=== PATIENT | female | born 1975 | race Caucasian/White ===

== ENCOUNTER 2018-05-02 18:41 | Emergency (ER) | payer SELFPAY ==
[~2018-05-02] VITALS: Ht 170.2 cm; Wt 65.9 kg
[2018-05-02 18:54] VITALS: TEMP 97.5
[2018-05-02 21:45] VITALS: BP 145/97; PULSE 88
== END 2018-05-02 19:53 | disposition home or self-care (01) ==
LOC: COL.ER 18:41
DX: S62.102A Fracture of unspecified carpal bone, left wrist, initial encounter for closed fracture (principal); S00.03XA Contusion of scalp, initial encounter; Y04.8XXA Assault by other bodily force, initial encounter; Y92.009 Unspecified place in unspecified non-institutional (private) residence as the place of occurrence of the external cause
CPT/HCPCS: J2405; J3010; J7030; Q4021

== ENCOUNTER 2018-05-03 07:06 | Day surgery (SDC) | payer SELFPAY ==
[~2018-05-03] VITALS: Ht 170.3 cm; Wt 71.3 kg
[2018-05-03 08:11] VITALS: BP 155/88; PULSE 84; TEMP 97.4
--- NOTE | 2018-05-03 08:19 | NUR ---
Pt alert and oriented. Resting in bed with IVF to RH. 20 G started in R hand. Pt denies needs, has 10/10 pain to L wrist. L arm in splint, fingers swollen, but able to move and CMS intact. Family at bedside. Dr. Day visited, pt signed consent and ready for surgery. Will continue to monitor.
--- NOTE | 2018-05-03 10:25 | NUR ---
Patient had been released.
[2018-05-03 11:50] VITALS: BP 147/98; PULSE 101; TEMP 98.4
--- NOTE | 2018-05-03 11:50 | NUR ---
Pt arrived back to floor, awake and alert, wants to leave now, discussed need for some recovery and to make sure she is okay to discharge. Will continue to monitor. Numbness in LUE from block, per MEDICAL RESIDENT, will be present for up to 12 hours.
[2018-05-03 12:05] VITALS: BP 145/90; PULSE 92
[2018-05-03 12:20] VITALS: BP 110/72; PULSE 102
[2018-05-03 12:35] VITALS: BP 128/72; PULSE 96; TEMP 98.4
[2018-05-03 13:05] VITALS: BP 137/70; PULSE 92; TEMP 98.4
--- NOTE | 2018-05-03 13:35 | NUR ---
Pt discharge complete. INT d/c'd, tip intact. Script given to pt. f/u appointment will be called to phone number on file. Pt doing well, numbness in LUE from block persists, denies pain, VSS. Discharge packet reviewed, answered all questions. Pt escorted out with all belongings, family to drive home, criteria met.
--- NOTE | 2018-05-03 15:27 | NUR ---
Late entry: SW met with patient and family at bedside. Pt gave verbal okay to talk infront of family. Patient reports that she uses [facility] for medications. Pt reports that she needs help with her medical bill but does not have any means of communication. Pt denies having a PCP. Mother, Anjali Dodge is her EMR contact, denies the uses of any DME. No additonal needs identifed.
== END 2018-05-03 13:30 | disposition home or self-care (01) ==
LOC: SDCO 07:06 → SURG 07:07 → SDCO 13:30
DX: S52.572A Other intraarticular fracture of lower end of left radius, initial encounter for closed fracture (principal); S52.612A Displaced fracture of left ulna styloid process, initial encounter for closed fracture; W10.9XXA Fall (on) (from) unspecified stairs and steps, initial encounter; Y92.009 Unspecified place in unspecified non-institutional (private) residence as the place of occurrence of the external cause; F17.210 Nicotine dependence, cigarettes, uncomplicated
CPT/HCPCS: OP; C1713; J0690; J2250; J2704; J2795; J3010

== ENCOUNTER 2018-07-31 05:36 | Day surgery (SDC) | payer OTHER ==
[~2018-07-31] VITALS: Ht 167.6 cm; Wt 72.7 kg
[2018-07-31 06:00] VITALS: BP 129/92; PULSE 87; TEMP 98.5
[2018-07-31 08:54] VITALS: BP 131/84; PULSE 84
--- NOTE | 2018-07-31 08:54 | NUR ---
Patient returns to room 2 per cart from surgery accompanied by Wing BUSTILLO and Yaneth RN. IV fluids infusing and site is free of redness. Siderails up x2 and call light in reach. Awake and alert. Left arm in sling. States that the arm is numb from block placed prior to surgery. Head of cart elevated.
[2018-07-31 09:09] VITALS: BP 131/87; PULSE 80
--- NOTE | 2018-07-31 09:09 | NUR ---
Eating muffin and drinking juice. Denies nausea.
[2018-07-31 09:24] VITALS: BP 127/84; PULSE 85
--- NOTE | 2018-07-31 09:24 | NUR ---
Left arm remains numb due to block. Nirav wrap dressing clean and dry. Tolerated muffin and juice.
--- NOTE | 2018-07-31 09:30 | NUR ---
Dr. Day here to talk with the patient and given instructions to keep the left arm dressing clean and dry and to follow up in the office in two weeks.
--- NOTE | 2018-07-31 09:53 | NUR ---
Patient has met discharge criteria. Discharge instructions discussed, denies any questions, and verbalizes understanding. PIV removed with catheter intact and hemostasis achieved. Patient has clean/dry/intact dressing and sling on operative site. Neurovascular assessment of LUE is WNL. Patient changes to clothing independently. Patient refuses wheelchair, escorted to exit, walks with steady gait. Discharged to home with ride in private vehicle at 0953.
== END 2018-07-31 09:53 | disposition home or self-care (01) ==
LOC: SDCO 05:36
DX: M66.242 Spontaneous rupture of extensor tendons, left hand (principal); F17.210 Nicotine dependence, cigarettes, uncomplicated
CPT/HCPCS: J0690; J2250; J2704; J3010; J7120

== ENCOUNTER 2020-07-13 23:35 | Emergency (ER) | payer OTHER ==
[~2020-07-13] VITALS: Ht 167.6 cm; Wt 81.8 kg
[2020-07-13 23:38] VITALS: TEMP 96.4
[2020-07-13 23:59] LABS: BASO # 0.1 (0.0-0.2); BASO % 1.1 % (0.0-2.0); EOS # 0.2 (0.0-0.7); GRAN # 2.7 (1.4-6.5); GRAN % 33.3 % (42.2-75.2); HEMATOCRIT 40.3 % (37.0-47.0); LYMPH # 4.4 (1.2-3.4); LYMPH % 53.6 % (20.0-51.0); MEAN CELL VOLUME 99 fl (80.0-100.0); MEAN CORPUSCULAR HEMOGLOBIN 32 pg (27.0-31.0); MEAN CORPUSCULAR HGB CONC 32 g/dl (33.0-37.0); MEAN PLATELET VOLUME 8.9 fl (7.4-10.4); MONO # 0.7 (0.1-0.6); MONO % 8.4 % (1.7-9.3); PLATELET COUNT 522 K/mm3 (130-400); RED BLOOD COUNT 4.06 M/mm3 (4.10-5.30); REDCELL DISTRIBUTION WIDTH-CV 19.3 % (11.5-14.5)
[2020-07-14 00:05] LABS: INR 0.9 (0.8-3.0); PROTHROMBIN TIME 9.8 SECONDS (9.7-12.8)
[2020-07-14 00:08] LABS: BILIRUBIN,TOTAL 0.4 mg/dL (0.0-1.0); CALCIUM 8.8 mg/dL (8.4-10.2); CREATININE, serum 0.71 (0.52-1.25); MAGNESIUM 1.9 mg/dL (1.6-2.3); POTASSIUM 4.3 mmol/L (3.4-5.0); TOTAL PROTEIN 7.2 gm/dL (6.4-8.2)
[2020-07-14 01:29] VITALS: BP 120/76; PULSE 78
== END 2020-07-14 01:30 | disposition home or self-care (01) ==
LOC: COL.ER 23:35
PROVIDERS: Physician Assistant
DX: F10.129 Alcohol abuse with intoxication, unspecified (principal); F17.210 Nicotine dependence, cigarettes, uncomplicated; Z96.0 Presence of urogenital implants
CPT/HCPCS: J7030

== ENCOUNTER 2020-07-19 18:21 | Inpatient (IN) | payer OTHER ==
[~2020-07-19] VITALS: Ht 165.1 cm; Wt 71.4 kg
[2020-07-19] VITALS (51 sets, daily range): BP systolic 95; BP diastolic 78; PULSE 105; TEMP 97.9; O2SAT 85–98
[2020-07-19 18:49] LABS: COLLECTION METHOD CLEAN CATCH
[2020-07-19 18:53] LABS: HEMATOCRIT 42.6 % (37.0-47.0); HEMOGLOBIN 14.3 g/dl (12.5-16.0); MEAN CELL VOLUME 95 fl (80.0-100.0); MEAN CORPUSCULAR HEMOGLOBIN 32 pg (27.0-31.0); MEAN CORPUSCULAR HGB CONC 34 g/dl (33.0-37.0); MEAN PLATELET VOLUME 11.3 fl (7.4-10.4); PLATELET COUNT 191 K/mm3 (130-400); RED BLOOD COUNT 4.49 M/mm3 (4.10-5.30)
[2020-07-19 19:01] LABS: MUCOUS Present /lpf; PH 5 (5-8); URINE APPEARANCE Cloudy; URINE BACTERIA Many /hpf; URINE BILIRUBIN Positive (NEGATIVE); URINE BLOOD 3+ (NEGATIVE); URINE COLOR Amber; URINE GLUCOSE Negative (NEGATIVE); URINE KETONE Negative (NEGATIVE); URINE LEUKOCYTE ESTERASE 1+ (NEGATIVE); URINE NITRATE Negative (NEGATIVE); URINE PROTEIN(semi-quant) 2+ (NEGATIVE); URINE RBC >50 /hpf; URINE UROBILINOGEN >=4.0 mg/dL (NEGATIVE)
[2020-07-19 19:06] LABS: BILIRUBIN,TOTAL 1.1 mg/dL (0.0-1.0); CALCIUM 9.9 mg/dL (8.4-10.2); CREATININE, serum 1.13 (0.52-1.25); POTASSIUM 3.9 mmol/L (3.4-5.0); TOTAL PROTEIN 8.1 gm/dL (6.4-8.2)
[2020-07-19 19:36] LABS: BAND 19 % (0-10); LYMPHOCYTE 5 % (20.0-51.0); NEUTROPHILS 75 % (42.0-75.2)
[2020-07-19 19:38] LABS: ANISOCYTOSIS 1+
[2020-07-20] VITALS (710 sets, daily range): BP systolic 96–150; BP diastolic 56–96; PULSE 98–108; TEMP 97.8–99.3; O2SAT 63–98
--- NOTE | 2020-07-20 00:05 | NUR ---
SPOKE TO TIFFANIE CARL REGARDING PATIENT'S ADMISSION MEDICATION ORDERS TO CLARIFY. ORDERS RECEIVED.
--- NOTE | 2020-07-20 02:00 | NUR ---
Vancomycin Initial Dosing Pharmacy Note Ordering provider: Roxane Long E., DO Indication/duration: Sepsis with renal source Relevant comorbidities: Long standing renal disease with stents and nephrostomy tube placement. LABS: WBC = 15.4, SCr= 1.13 Recommendation: Will draw troughs and follow levels. Loading dose: 1.5 grams Maintenance dose: 750 mg every 12 hours Trough goal: 15-20 ug/mL
[2020-07-20 05:56] LABS: MEAN CELL VOLUME 99 fl (80.0-100.0); MEAN CORPUSCULAR HGB CONC 32 g/dl (33.0-37.0); MEAN PLATELET VOLUME 11.6 fl (7.4-10.4); PLATELET COUNT 139 K/mm3 (130-400); RED BLOOD COUNT 3.37 M/mm3 (4.10-5.30); REDCELL DISTRIBUTION WIDTH-CV 19.2 % (11.5-14.5)
[2020-07-20 05:57] LABS: HEMATOCRIT 33.5 % (37.0-47.0); MEAN CORPUSCULAR HEMOGLOBIN 32 pg (27.0-31.0)
[2020-07-20 05:59] LABS: HEMOGLOBIN 10.7 g/dl (12.5-16.0)
[2020-07-20 06:03] LABS: CALCIUM 7.9 mg/dL (8.4-10.2); CREATININE, serum 0.89 (0.52-1.25); POTASSIUM 3.5 mmol/L (3.4-5.0)
[2020-07-20 06:37] LABS: BAND 27 % (0-10); LYMPHOCYTE 9 % (20.0-51.0); NEUTROPHILS 59 % (42.0-75.2); PLATELET ESTIMATE NORMAL (NORMAL)
--- NOTE | 2020-07-20 08:00 | NUR ---
ORDERS RECEIVED TO KEEP PATIENT NPO FOR DRAIN PLACEMENT FOR FLUID IN ABDOMEN.. PATIENT AWARE OF THE PLAN.
--- NOTE | 2020-07-20 12:00 | NUR ---
0.5 MG VERSED AND 25 MCG FENTANYL GIVEN IVSP
--- NOTE | 2020-07-20 12:15 | NUR ---
PT TRANSFERED TO BED AND TAKEN TO ICU BY STAFF. REPORT CALLED TO [facility].
--- NOTE | 2020-07-20 12:30 | NUR ---
PATIENT RETURNS FROM CT AT THIS TIME. THEY WERE UNABLE TO PLACE DRAIN FOR FREE FLUID IN ABDOMEN. DR. BAINS TO CALL DR. FLORIAN WITH UPDATE.
--- NOTE | 2020-07-20 12:58 | NUR ---
1140PT BROUGHT TO CT ON BED. PT WAS TRANSFERED TO CT TABLE AND MONITORING EQUIPMENT PLACED.
--- NOTE | 2020-07-20 13:00 | NUR ---
DR. FLORIAN CALLED FOR DIET ORDERS.
--- NOTE | 2020-07-20 13:51 | NUR ---
Education Associate met with the patient to complete intake. The patient lives independently in [place] with her life partner, José Miguel. The patient denies DME use. The patient does not have a PCP but was agreeable to setting up a new PCP. The patient does not have advanced directives. The patient has adult children but they have not been in contact for 6 years. JOHN discussed the legal next of kin for decision making. The patient understood. She states she would like her mother or her life partner to make decisions and was agreeable obtaining a DPOA-HC form. SW provided a DPOA-HC form to complete. The patient plans to return home at discharge. The patient is self-pay. JOHN contacted Luba Cruz, Financial Counselor and she will assist the the patient in completing a Medicaid application on 07/21. Luba reports the patient has comppleted a Medicaid application in the past (2018) but the patient did not provide the documentation to complete the process. JOHN contacted [facility] to set up appointment. The earliest appointment is on August 25 at 3pm. JOHN set appointment for the patient and faxed clinicals to [facility]. *Discharge plan is to return home with her life partner, José Miguel*
--- NOTE | 2020-07-20 17:51 | NUR ---
PATIENT DOING WELL THIS AFTERNOON. SHE RESTS AND OCCASIONALLY CALLS OUT FOR PAIN MEDICATION. SHE IS ENCOURAGED TO CALL FOR ASSISTANCE WHEN SHE WANTS IT. SHE WAS OFFERED THE RECLINER EARLIER THIS AFTERNOON, BUT REFUSED D/T PAIN WITH POSITION CHANGE. WILL CONTINUE TO MONITOR.
--- NOTE | 2020-07-20 20:37 | NUR ---
PATIENT IS ALERT AND ORIENTED, SMILING,REQUESTS FOR A SLEEP AID TONIGHT CAUSE OF BEING VERY TIRED, ORDERS TO FOLLOW, PAIN IS IN RIGHT UPPER QUADRANT OF ABDOMIN TO RIGHT FLANK AREA.
--- NOTE | 2020-07-20 21:45 | NUR ---
GIVE NURSE REPORT TO AWILDA RN, TOOK PATIENT WITH RANDAL MEADOWS IV NS, TO ROOM MET BY AWILDA ELIZALDE, STRETCHER, HAND OFF EASILY PERFORMED
[2020-07-21 03:11] VITALS: BP 140/80; PULSE 97; TEMP 99.4
--- NOTE | 2020-07-21 04:11 | NUR ---
Patient arrived from the ICU via the bed. She denied pain. Her vitals are stable. She is on room air.
[2020-07-21 06:23] LABS: HEMATOCRIT 33.7 % (37.0-47.0); HEMOGLOBIN 10.5 g/dl (12.5-16.0); MEAN CELL VOLUME 99 fl (80.0-100.0); MEAN CORPUSCULAR HEMOGLOBIN 31 pg (27.0-31.0); MEAN CORPUSCULAR HGB CONC 31 g/dl (33.0-37.0); MEAN PLATELET VOLUME 11.1 fl (7.4-10.4); PLATELET COUNT 136 K/mm3 (130-400); RED BLOOD COUNT 3.39 M/mm3 (4.10-5.30)
[2020-07-21 06:28] LABS: CALCIUM 8.3 mg/dL (8.4-10.2); CREATININE, serum 0.69 (0.52-1.25); POTASSIUM 3.7 mmol/L (3.4-5.0)
[2020-07-21 06:58] LABS: BAND 30 % (0-10); LYMPHOCYTE 9 % (20.0-51.0); METAMYELOCYTE 1 % (0-0); NEUTROPHILS 54 % (42.0-75.2); PLATELET ESTIMATE NORMAL (NORMAL)
--- NOTE | 2020-07-21 07:10 | NUR ---
Lying in bed with eyes closed. Opens eyes when name called out. Alert and oriented x4. Rates pain 10/10 in right abd and flank and would like pain medication. Will administer Dilaudid as prescribed. Carrasco draining dark perez urine. Patient does not want to eat breakfast at this time, says that she is tired from lack of sleep through the night so would like to rest at this time. Denies additional needs.
[2020-07-21 07:14] VITALS: BP 141/81; PULSE 92; TEMP 98.5
--- NOTE | 2020-07-21 09:51 | NUR ---
Patient requests pain medication for increasing pain in right abd and flank. Administer Dilaudid as prescribed. Patient remains resting in bed. Denies additional needs.
--- NOTE | 2020-07-21 11:00 | NUR ---
Discuss with the patient pain medication ordered, antibiotic change, and stopping IV fluids. Administer Olar as prescribed. Patient declines shower, says that she took one in the night. Cath care provided. Patient not hungry at this time. Denies additional needs.
[2020-07-21 11:08] VITALS: BP 127/70; PULSE 93; TEMP 99.4
--- NOTE | 2020-07-21 12:17 | NUR ---
First visit from the v belt finisher. No needs right now.
--- NOTE | 2020-07-21 13:25 | NUR ---
Rating pain 8/10 in abd and would like pain medication. Adminsiter Dilaudid as prescribed. Dr. Kern in room talking with patient. Danilo mcclelland'arnaud per Dr Davila's order. Patient tolerates without difficulty. Discuss with the patient further the [place] and Dilaudid. Patient says that she cannot have any meds that have Tylenol or ibuprofen because it causes her stomach irritation. Explain that I would let the provider know. Clarified with Dr. Kern if patient can be on pharmacologic VTE and he agrees. Spoke with TIFFANIE Leo, and provide update on patient concerns with taking anything with Tylenol or ibuprofen and also that Dr. Kern aproves pharmacologic VTE.
[2020-07-21 15:30] VITALS: BP 148/87; PULSE 94; TEMP 98.5
--- NOTE | 2020-07-21 17:17 | NUR ---
Sitting up in bed watching TV and trying to eat dinner. Rates pain in abd 8/10. Administer Roxicodone as prescribed. Patient says that earlier she walked around the nurses station twice and has been up to the bathroom voiding without difficulty. Denies additional needs or concerns at this time.
[2020-07-21 19:32] VITALS: BP 129/77; PULSE 100; PULSE 90; TEMP 98.5
--- NOTE | 2020-07-21 21:10 | NUR ---
Pt. sitting up in bed. Pt. is A&OX3, assessment complete. INT to rt. ac patent. Pt. reports pain at a 5 on pain scale, gave pain meds per orders. Pt. denies further needs, call light within reach.
[2020-07-22 00:15] VITALS: BP 139/79; PULSE 106; TEMP 99.2
[2020-07-22 03:52] VITALS: BP 136/72; PULSE 105; TEMP 97.4
[2020-07-22 06:25] LABS: HEMOGLOBIN 11.2 g/dl (12.5-16.0); MEAN CELL VOLUME 97 fl (80.0-100.0); MEAN CORPUSCULAR HEMOGLOBIN 32 pg (27.0-31.0); MEAN CORPUSCULAR HGB CONC 33 g/dl (33.0-37.0); MEAN PLATELET VOLUME 11.3 fl (7.4-10.4); PLATELET COUNT 138 K/mm3 (130-400); RED BLOOD COUNT 3.54 M/mm3 (4.10-5.30); REDCELL DISTRIBUTION WIDTH-CV 18.5 % (11.5-14.5)
[2020-07-22 06:26] LABS: HEMATOCRIT 34.4 % (37.0-47.0)
[2020-07-22 06:37] LABS: CALCIUM 8.8 mg/dL (8.4-10.2); CREATININE, serum 0.64 (0.52-1.25); POTASSIUM 3.6 mmol/L (3.4-5.0)
[2020-07-22 07:43] LABS: BAND 15 % (0-10); LYMPHOCYTE 18 % (20.0-51.0); METAMYELOCYTE 5 % (0-0); MYELOCYTE 1 % (0-0); NEUTROPHILS 48 % (42.0-75.2); PLATELET ESTIMATE NORMAL (NORMAL)
[2020-07-22 08:00] VITALS: BP 128/67; PULSE 106; TEMP 98.7
--- NOTE | 2020-07-22 08:15 | NUR ---
PATIENT MORNING SHIFT ASSESSMENT COMPLETED BY THIS NURSE AND SN TOMAS. PATIENT RESTING IN BED. PATIENT REPORTS RIGHT SIDED ABDOMINAL PAIN THAT RADIATES TO THE RIGHT KIDNEY. PAIN MANAGABLE WITH PO OXYCODONE. AM MEDICATIONS GIVEN BY STUDENT NURSE. CALL LIGHT WITHIN REACH. NO NEEDS AT THIS TIME.
--- NOTE | 2020-07-22 09:41 | NUR ---
The patient is to discharge back home with her life partner today, 07/22. No additional needs at this time.
[2020-07-22] MEDS ORDERED: ROXICODONE 55 MG/TAB PO (09:42)
[2020-07-22] MEDS ORDERED: OMNICEF 300MG300 MG PO (09:42)
[2020-07-22] MEDS ORDERED: THIAMINE 1100 MG/TAB PO (09:43)
[2020-07-22] MEDS ORDERED: ZOFRAN ODT4 MG PO (09:43)
[2020-07-22] MEDS ORDERED: DUO-KAPS1 CAP PO (09:43)
[2020-07-22] MEDS ORDERED: FOLIC ACID 11 MG/TA1 PO (09:43)
[2020-07-22] MEDS ORDERED: INCRUSE EL62.5 MCG/A IH ×2 (09:47)
[2020-07-22] MEDS ORDERED: VENTOLIN0.09 MG IH (09:47)
[2020-07-22] MEDS ORDERED: RT ADVAIR 128 DISKUS IH (10:44)
--- NOTE | 2020-07-22 11:28 | NUR ---
The patient is self pay. JOHN met with the patient to inquire if she would be able to afford her meds. The patient states that she will not and that her family is not able to help her. JOHN provided a med voucher to the patient to [facility]. The total is $252.22. JOHN faxed the med voucher to Lala at [facility]. The patient's scripts were electronically transmitted to [facility]. JOHN updated the patient's RN on the above information. No additional needs at this time.
[2020-07-22 12:22] VITALS: BP 125/71; PULSE 95; TEMP 98.7
--- NOTE | 2020-07-22 16:23 | NUR ---
PATIENT DISCHARGE INSTRUCTIONS REVIEWED. QUESTIONS SOUGHT AND ANSWERED. PATIENT PERSONAL BELONGINGS GATHERED. PATIENT AMBULATED WITH SURGICAL STAFF TO PERSONAL VEHICLE. PATIENT DISCHARGED.
== END 2020-07-22 16:25 | disposition home or self-care (01) | DRG 854 ==
LOC: COL.ER 18:21 → ICU 22:34 → SURG 07-20 22:21
PROVIDERS: Nurse Practitioner; Physician Assistant; Student in an Organized Health Care Education/Training Program; Urology; ADMIT Family Medicine
PROC: BT1DYZZ Fluoroscopy of Right Kidney, Ureter and Bladder using Other Contrast (ICD-10-PCS; principal; 2020-07-19 21:30)
PROC: 0T768DZ Dilation of Right Ureter with Intraluminal Device, Via Natural or Artificial Opening Endoscopic (ICD-10-PCS; 2020-07-19 21:30)
DX: A41.9 Sepsis, unspecified organism (principal); N13.6 Pyonephrosis; N17.9 Acute kidney failure, unspecified; N20.1 Calculus of ureter; N13.0 Hydronephrosis with ureteropelvic junction obstruction; N39.0 Urinary tract infection, site not specified; F17.210 Nicotine dependence, cigarettes, uncomplicated; N36.8 Other specified disorders of urethra; Z20.822 Contact with and (suspected) exposure to COVID-19; G47.00 Insomnia, unspecified; F10.10 Alcohol abuse, uncomplicated; R74.01 Elevation of levels of liver transaminase levels; R00.0 Tachycardia, unspecified
CPT/HCPCS: 99223-AI; 99232-AI; 99233-AI; 99239; C1769; C2617; C9113; J0692; J0696; J1170; J1650; J2250; J2405; J2543; J2704; J3010; J3370; J3411; J3480; J7030; J7050; J7120; Q9967

== ENCOUNTER → 2020-10-10 | Outpatient (CLI) | payer OTHER ==
[~2020-10-10] MED LIST: DUO-KAPS1 CAP PO; FOLIC ACID 11 MG/TA1 PO; INCRUSE EL62.5 MCG/A IH; K-TAB20 PO; OMNICEF 300MG300 MG PO; ROXICODONE 55 MG/TAB PO; RT ADVAIR 128 DISKUS IH; THIAMINE 1100 MG/TAB PO; VENTOLIN0.09 MG IH; ZOFRAN ODT4 MG PO
== END ==
LOC: COL.RAD 10:53
DX: N13.0 Hydronephrosis with ureteropelvic junction obstruction (principal)
CPT/HCPCS: Q9967

== ENCOUNTER 2020-10-20 15:50 | Emergency (ER) | payer OTHER ==
[~2020-10-20] VITALS: Ht 167.6 cm; Wt 66.8 kg
[~2020-10-20 15:50] MED LIST changes: -K-TAB20 PO
[2020-10-20 16:06] VITALS: TEMP 98.9
[2020-10-20 16:21] LABS: BASO # 0.1 (0.0-0.2); BASO % 0.5 % (0.0-2.0); EOS # 0.1 (0.0-0.7); EOS % 1.1 % (0-4.0); GRAN # 6.5 (1.4-6.5); GRAN % 58.8 % (42.2-75.2); HEMOGLOBIN 11.5 g/dl (12.5-16.0); LYMPH # 3.3 (1.2-3.4); LYMPH % 29.5 % (20.0-51.0); MEAN CELL VOLUME 93 fl (80.0-100.0); MEAN CORPUSCULAR HEMOGLOBIN 30 pg (27.0-31.0); MEAN CORPUSCULAR HGB CONC 32 g/dl (33.0-37.0); MEAN PLATELET VOLUME 8.2 fl (7.4-10.4); MONO % 9.4 % (1.7-9.3); PLATELET COUNT 538 K/mm3 (130-400); RED BLOOD COUNT 3.89 M/mm3 (4.10-5.30); REDCELL DISTRIBUTION WIDTH-CV 18.6 % (11.5-14.5)
[2020-10-20 16:22] LABS: HEMATOCRIT 36.1 % (37.0-47.0)
[2020-10-20 16:39] LABS: C-REACTIVE PROTEIN 1.8 mg/dL (0.0-0.9); LIPASE 126 U/L (23-300)
[2020-10-20 16:46] LABS: ALCOHOL(ethanol),MEDICAL 377 mg/dL
[2020-10-20 17:04] LABS: TROPONIN-I < 0.012 ng/mL (0.000-0.035)
[2020-10-20 17:07] LABS: ALANINE AMINOTRANSFERASE 8 U/L (4-34); ALBUMIN 2.2 gm/dL (3.5-5.0); ALKALINE PHOSPHATASE 102 U/L (50-136); ANION GAP 5 mmol/L (7-16); AST,SGOT 18 U/L (15-37); BILIRUBIN,TOTAL < 0.1 mg/dL (0.0-1.0); BLOOD UREA NITROGEN 4 mg/dL (7-17); CALCIUM 7.4 mg/dL (8.4-10.2); CARBON DIOXIDE 24 mmol/L (22-30); CHLORIDE 109 mmol/L (98-107); CREATININE, serum 0.44 (0.52-1.25); GLUCOSE 104 mg/dL (74-106); POTASSIUM 3.2 mmol/L (3.4-5.0); SODIUM 138 mmol/L (137-145); TOTAL PROTEIN 5.4 gm/dL (6.4-8.2)
[2020-10-20 17:22] VITALS: BP 116/75; PULSE 113
[2020-10-20 17:27] LABS: COLLECTION METHOD CLEAN CATCH
[2020-10-20 17:34] LABS: PH 6 (5-8); SQUAMOUS EPITHELIAL 0-2 /hpf; URINE APPEARANCE Turbid; URINE BACTERIA Many /hpf; URINE BILIRUBIN Negative (NEGATIVE); URINE BLOOD 2+ (NEGATIVE); URINE COLOR Yellow; URINE GLUCOSE Negative (NEGATIVE); URINE KETONE Negative (NEGATIVE); URINE LEUKOCYTE ESTERASE 3+ (NEGATIVE); URINE NITRATE Negative (NEGATIVE); URINE PROTEIN(semi-quant) 1+ (NEGATIVE); URINE RBC >50 /hpf; URINE UROBILINOGEN Negative (NEGATIVE)
[2020-10-20 17:41] LABS: TRICYCLIC ANTIDEPRESS URINE NEGATIVE
[2020-10-20] MEDS ORDERED: K-TAB20 PO (18:13)
[2020-10-20] MEDS ORDERED: OMNICEF 300MG300 MG PO (18:13)
== END 2020-10-20 17:24 | disposition left against medical advice (07) ==
LOC: COL.ER 15:50
PROVIDERS: Family Medicine; Nurse Practitioner Primary Care
DX: F10.129 Alcohol abuse with intoxication, unspecified (principal); F17.210 Nicotine dependence, cigarettes, uncomplicated

== ENCOUNTER → 2021-01-13 | Outpatient (CLI) | payer OTHER ==
[~2021-01-13] MED LIST changes: +K-TAB20 PO; +LASIX 20MG TABL20 MG PO; +PROAIR HFA0.09 MG/AC IH
[2021-01-13 12:31] LABS: BASO % 0.3 % (0.0-2.0); EOS # 0.1 (0.0-0.7); EOS % 1.4 % (0-4.0); GRAN % 42.8 % (42.2-75.2); HEMOGLOBIN 11.8 g/dl (12.5-16.0); LYMPH # 2.5 (1.2-3.4); MEAN CELL VOLUME 104 fl (80.0-100.0); MEAN CORPUSCULAR HEMOGLOBIN 34 pg (27.0-31.0); MEAN CORPUSCULAR HGB CONC 33 g/dl (33.0-37.0); MONO # 1.3 (0.1-0.6); MONO % 19.1 % (1.7-9.3); PLATELET COUNT 572 K/mm3 (130-400); RED BLOOD COUNT 3.43 M/mm3 (4.10-5.30); REDCELL DISTRIBUTION WIDTH-CV 17.4 % (11.5-14.5)
[2021-01-13 12:32] LABS: HEMATOCRIT 35.8 % (37.0-47.0)
[2021-01-13 12:36] LABS: CALCIUM 7.6 mg/dL (8.4-10.2); CREATININE, serum 0.7 (0.52-1.25); POTASSIUM 3.4 mmol/L (3.4-5.0)
== END ==
LOC: COL.LAB 11:30
DX: N13.0 Hydronephrosis with ureteropelvic junction obstruction (principal)

== ENCOUNTER 2021-01-30 14:13 | Inpatient (IN) | payer OTHER ==
[~2021-01-30] VITALS: Ht 167.6 cm; Wt 58.2 kg
[~2021-01-30 14:13] MED LIST changes: -LASIX 20MG TABL20 MG PO; -PROAIR HFA0.09 MG/AC IH
[2021-03-17 18:42] VITALS: O2SAT 99
[2021-04-01] MEDS ORDERED: PROAIR HFA0.09 MG/AC IH (10:07)
[2021-04-01] MEDS ORDERED: LASIX 20MG TABL20 MG PO (10:07)
[2021-04-01] MEDS ORDERED: FOLIC ACID 11 MG/TA1 PO (10:08)
[2021-04-01] MEDS ORDERED: THIAMINE 1100 MG/TAB PO (10:08)
[2021-04-01] MEDS ORDERED: DUO-KAPS1 CAP PO (10:08)
[2021-08-01] VITALS (9 sets, daily range): BP systolic 101–125; BP diastolic 61–74; PULSE 79–99; TEMP 98.2–98.3
--- NOTE | 2021-08-01 09:30 | NUR ---
PT AMBULATED TO BAY 2 ACCOMPANIED BY A FRIEND. VS OBTAINED. CONSENT SIGNED. 18G IV INFUSING LR IN R WRIST. ASSESSMENT COMPLETED. ORIENTED TO ROOM AND CALL LIGHT. PT VERBALIZED UNDERSTANDING. CALL LIGHT WITHIN REACH. WILL CONTINUE TO MONITOR PT.
[2021-08-01 10:05] LABS: TRICYCLIC ANTIDEPRESS URINE NEGATIVE
[2021-08-01] MEDS ORDERED: MULTI VITAMINS1 TAB PO (16:10)
--- NOTE | 2021-08-01 16:15 | NUR ---
PT. ARRIVED TO FLOOR AT THIS TIME. SHE IS DROWSY AND DENIES PAIN. ASSESSMENT PERFORMED. LUNG SOUNDS CLEAR AND HEART SOUNDS NORMAL WITH S1 AND S2. INCISIONS ARE CD&I WITH MELANIE DRAIN. PT. HAS TEE CONTAIN PALE YELLOW URINE. PT. HAS LR HANGING TO GRAVITY. PT. HAS NO FURTHER NEEEDS AT THIS TIME. CALL LIGHT WITHIN REACH.
--- NOTE | 2021-08-01 20:00 | NUR ---
PATIENT IS A&O. VSS. PATIENT REPORTS GETTING PAIN MEDS FROM DAY SHIFT NURSE AND STATES PAIN IS WELL MANAGED AT THIS TIME. GAVE SCHEDULED IV TORADOL PER ORDERS. IV FLUIDS INFUSING INTO RIGHT WRIST VIA PUMP. NO C/O N/V. TOLERATING CLEARS. ABD LAP SITES X5 ARE CD&I WITH BANDAIDS. ABD MIDLINE IS CD&I WITH GAUZE & METAPOR TAPE. MELANIE DRAIN TO COMPRESSION WITH 120CC OF BLOODY DRAINAGE NOTED. TEE TO DD WITH ONLY 75CC OF CLEAR YELLOW URINE NOTED. HEAD TO TOE ASSESSMENT COMPLETE. SCD'S CURRENTLY OFF. PATIENT AMBULATING IN HALLS PER ERAS PROTOCOL AND TOLERATING ACTIVITY WELL. NO OTHER NEEDS AT THIS TIME. CALL LIGHT IN REACH.
[2021-08-02 03:50] VITALS: BP 103/55; PULSE 80; TEMP 98.5
--- NOTE | 2021-08-02 04:10 | NUR ---
PATIENT HAS AMBULATED SEVERAL TIMES THROUGHOUT THE PATIENT FINANCIAL COUNSELOR. GAIT STEADY. TOLERATING ACTIVITY WELL. NO COMPLAINTS.
[2021-08-02 06:20] LABS: HEMOGLOBIN 10.4 g/dl (12.5-16.0)
[2021-08-02 06:29] LABS: HEMATOCRIT 32.4 % (37.0-47.0)
[2021-08-02 06:34] LABS: CREATININE, serum 0.78 mg/dL (0.57-1.11); POTASSIUM 4.5 mmol/L (3.5-4.5)
[2021-08-02 08:00] VITALS: BP 99/55; PULSE 83; TEMP 97.8
--- NOTE | 2021-08-02 08:30 | NUR ---
Pt doing well this morning. She did state that she was having some pain, educated her on the ordered pain medication. Dr Kern has been in, new orders entered. Educated about her not eating too much, but that she can have a general diet. Carrasco catheter removed.
--- NOTE | 2021-08-02 09:20 | NUR ---
Initial visit; Patient thanked Junior Architect for looking in on her and offering prayer and God's blessings. Patient doing well and attributes her healing to God and her good Physician. Junior Architect will follow-up while patient is available.
[2021-08-02 12:00] VITALS: BP 88/47; PULSE 92; TEMP 98
--- NOTE | 2021-08-02 12:06 | NUR ---
child and family services worker met with patient to discuss discharge plan. Patient reports that she lives at home in [place] with her boyfriend. She states that she is independent with her ADL's and does not utilize any medical equipment to assist with mobility. Patient has no home oxygen needs. She states that she does not have a PCP and has trouble affording her medications. Patient was provided a medication voucher to [facility] at her last discharge in March. Patient will most likely need another medication voucher. Patient reports that she does not have a DPOA-HC established. She is not legally and states that she has not spoken to any of her children since 2013. Patient educated and encouraged to complete a DPOA-HC. Informed patient that i will provide a DPOA-HC form to her. Patient is planning on discharging to home once medically ready. Discharge plan: Home
--- NOTE | 2021-08-02 12:52 | NUR ---
Pt having complaints of pain in her shoulders. Stated that someone told her that they would hurt today from injections from surgery. Pt appears to be resting comfortably and is ambulating with no difficulty. Did tell pt that she needed to stay on 3rd floor as she was planning on going outside. She was not happy with this, but stated she would stay on the floor.
[2021-08-02 16:00] VITALS: BP 96/55; PULSE 92; TEMP 98.2
--- NOTE | 2021-08-02 18:26 | NUR ---
Pt has not been as active today as reported she was last night. Pt stating that she is having too much pain. Encouraged her to ambulate after the pain medication as started working. MELANIE drain not staying to bulb suction all the day, not able to find where the air is coming from other than the insertion site. Dressing around the drain has been changed due to small amount of leaking. Pt up in the halls walking now
--- NOTE | 2021-08-02 19:30 | NUR ---
SITTING UP IN BED. C/O ABD PAIN. TOO EARLY FOR PAIN MED. DINNER TRAY HERE NOW. AT BEDSIDE. VERY SUPPORTIVE. CALL LIGHT IN REACH.
[2021-08-02 19:49] VITALS: BP 100/60; PULSE 96; TEMP 98.6
[2021-08-02 23:33] VITALS: BP 98/54; PULSE 98; TEMP 99.1
--- NOTE | 2021-08-03 00:15 | NUR ---
SEE MAR FOR MS 3MG GIVEN FOR UNRELIEVED LEVEL 10 ABD PAIN.
--- NOTE | 2021-08-03 01:58 | NUR ---
SEE MAR FOR ROXICODONE GIVEN FOR ABD PAIN.
--- NOTE | 2021-08-03 03:51 | NUR ---
PT SLEEPING. NO DISTRESS.
[2021-08-03 03:59] VITALS: BP 98/57; PULSE 99; TEMP 98.5
--- NOTE | 2021-08-03 05:16 | NUR ---
PT HAS HAD PAIN ISSUES TONGHT BUT RESTING NOW.
--- NOTE | 2021-08-03 06:00 | NUR ---
PT AWAKE. RESTING QUIETLY. TOTAL MELNAIE DRAINAGE IS 150CC THIS SHIFT.
--- NOTE | 2021-08-03 08:00 | NUR ---
Pt resting in bed upon entering room. Dr Kern in with her at this time. Discussed plan of care, removing drain and pain management. Drain removed and gauze/tegaderm applied. Incisions all well approximated with gil intact. Pt tolerated removal. Educated importance of using the incentive spirometer, pt claims she is using it during commercials. Breakfast has been ordered
[2021-08-03 08:09] VITALS: BP 107/64; PULSE 95; TEMP 99.3
--- NOTE | 2021-08-03 09:47 | NUR ---
Pt doing well, reports that pain is not 3/10. She does have a visitor in the room with her. Again reminded pt about using the incentive spirometer
[2021-08-03 11:25] VITALS: BP 99/55; PULSE 94; TEMP 98.7
--- NOTE | 2021-08-03 15:35 | NUR ---
PT resting with eyes closed, even non labored breathing upon entering room. Pt has been up walking in the halls earlier. Pt stating that her pain continues to be 6/10, but states she was comfortable enough to get some sleep. Pt denies any needs at this time, tolerating general diet, call light wtihin reach
[2021-08-03 16:04] VITALS: BP 109/58; PULSE 107; TEMP 99.3
[2021-08-03 19:32] VITALS: BP 106/67; PULSE 103; TEMP 98.9
--- NOTE | 2021-08-03 20:00 | NUR ---
PATIENT IS A&O. VSS. PATIENT REPORTS PAIN IS BETTER AFTER PAIN MEDS GIVEN BY DAY SHIFT CLOSE TO SHIFT CHANGE. ABD LAP SITE X5 AND MIDLINE ARE WELL APPROXIMATED WITH STAPLE CLOSURE. ABD IS SL DISTENDED POST OP. PATIENT IS PASSING GAS, NO BM YET. NO C/O N/V. TOLERATING GENERAL DIET. HS MEDS GIVEN PER ORDERS. RIGHT WRIST IV TO INT. HEAD TO TOE ASSESSMENT COMPLETE. PATIENT INDEPENDENT IN ROOM, GAIT STEADY. PATIENT IS HOPING TO DISCHARGE HOME TOMORROW. NO OTHER NEEDS AT THIS TIME. CALL LIGHT IN REACH.
[2021-08-03 23:50] VITALS: BP 108/62; PULSE 93; TEMP 98.6
[2021-08-04 03:42] VITALS: BP 118/70; PULSE 86; TEMP 98.7
[2021-08-04] MEDS ORDERED: DILAUDID 2MG TAB2 MG PO (06:57)
[2021-08-04] MEDS ORDERED: BACTRIM DS 8001 TAB PO (07:21)
[2021-08-04 07:34] VITALS: BP 106/56; PULSE 76; TEMP 98.2
--- NOTE | 2021-08-04 08:08 | NUR ---
ASSESSMENT COMPLETE. PT. UP AND EATING BREAKFAST. SURGICAL SITE CD&I X5. PT. GAIT STEADY. IV D['C TO RIGHT WRIST. PT. AWAITING DISCHARGE PAPERWORK. NO FURTHER NEEDS AT THIS TIME. TONIO DORSEY.
--- NOTE | 2021-08-04 08:37 | NUR ---
Discharge paperwork and instructions reviewed with patient. All questions answered at this time. IV to Rwrist dc'd catheter tip intact. Pt walked out of facility by staff at this time.
== END 2021-08-04 08:37 | disposition home or self-care (01) | DRG 661 ==
LOC: SURG 02-14 07:30 → INPTSU 08-01 09:10 → SURG 08-01 11:00
PROVIDERS: ADMIT Urology
PROC: 8E0W4CZ Robotic Assisted Procedure of Trunk Region, Percutaneous Endoscopic Approach (ICD-10-PCS; 2021-08-01)
PROC: 0TT04ZZ Resection of Right Kidney, Percutaneous Endoscopic Approach (ICD-10-PCS; principal; 2021-08-01 11:00)
DX: N13.6 Pyonephrosis (principal)
CPT/HCPCS: A4314; A9284; C1769; J0690; J0696; J1100; J1650; J1885; J2250; J2270; J2405; J2704; J2795; J3010; J7120

== ENCOUNTER 2021-03-17 08:34 | Inpatient (IN) | payer OTHER ==
[2021-03-17] VITALS (245 sets, daily range): BP systolic 74–98; BP diastolic 52–65; PULSE 74–132; TEMP 36.9; O2SAT 83–100
[~2021-03-17] VITALS: Ht 170.2 cm; Wt 68.6 kg
[2021-03-17 09:29] LABS: COLLECTION METHOD CLEAN CATCH
[2021-03-17 09:30] LABS: ARTERIAL BLD GAS O2 SATURATION 77.2 % (92-100); ARTERIAL BLD GAS TCO2 CT 27.7; ARTERIAL BLOOD GAS BASE EXCESS -1.3 (-2-2); ARTERIAL BLOOD GAS PCO2 55.5 mmHg (35-45); ARTERIAL BLOOD GAS PO2 50.5 mmHg (80-100); ARTERIAL BLOOD GAS pH 7.29 (7.35-7.45)
[2021-03-17 09:40] LABS: INR 1.2 (0.8-3.0); PROTHROMBIN TIME 13.5 SECONDS (9.7-12.8)
[2021-03-17 09:45] LABS: MUCOUS Present (NOT PRESENT); PH 6 (5-8); SQUAMOUS EPITHELIAL 0-2 /hpf (0-10); URINE APPEARANCE Hazy (CLEAR/HAZY); URINE BACTERIA Occasional (NONE SEEN); URINE BILIRUBIN Negative (NEGATIVE); URINE BLOOD Negative (NEGATIVE); URINE COLOR Yellow (YELLOW); URINE GLUCOSE Negative (NEGATIVE); URINE KETONE Negative (NEGATIVE); URINE LEUKOCYTE ESTERASE Trace (NEGATIVE); URINE NITRATE Positive (NEGATIVE); URINE PROTEIN(semi-quant) Negative (NEGATIVE); URINE RBC 0-2 /hpf (0-2); URINE UROBILINOGEN Negative (NEGATIVE)
[2021-03-17 10:27] LABS: MEAN CELL VOLUME 94 fl (80.0-100.0); MEAN CORPUSCULAR HEMOGLOBIN 32 pg (27.0-31.0); MEAN CORPUSCULAR HGB CONC 34 g/dl (33.0-37.0); MEAN PLATELET VOLUME 10.9 fl (7.4-10.4); PLATELET COUNT 98 K/mm3 (130-400); RED BLOOD COUNT 3.11 M/mm3 (4.10-5.30); REDCELL DISTRIBUTION WIDTH-CV 16.6 % (11.5-14.5)
[2021-03-17 10:28] LABS: HEMATOCRIT 29.3 % (37.0-47.0)
[2021-03-17 10:38] LABS: ALANINE AMINOTRANSFERASE 29 U/L (0-55); ALBUMIN 0.7 gm/dL (3.5-5.0); ALCOHOL(ethanol),MEDICAL 162 mg/dL (0-10); ALKALINE PHOSPHATASE 124 U/L (40-150); ANION GAP 7 mmol/L (7-16); AST,SGOT 44 U/L (5-34); BILIRUBIN,TOTAL 0.2 mg/dL (0.2-1.2); BLOOD UREA NITROGEN 5 mg/dL (7-19); CALCIUM 6.1 mg/dL (8.4-10.2); CARBON DIOXIDE 21 mmol/L (22-29); CHLORIDE 109 mmol/L (98-107); CREATINE KINASE 123 U/L (29-168); CREATININE, serum 0.45 mg/dL (0.57-1.11); GLUCOSE 114 mg/dL (70-99); SODIUM 137 mmol/L (136-145); TOTAL PROTEIN 3.5 gm/dL (6.2-8.1)
[2021-03-17 10:40] LABS: POTASSIUM 2.5 mmol/L (3.5-4.5)
[2021-03-17 10:42] LABS: BAND 20 % (0-10); LYMPHOCYTE 1 % (20.0-51.0); NEUTROPHILS 71 % (42.0-75.2); PLATELET ESTIMATE DECREASED (NORMAL)
[2021-03-17 10:45] LABS: TROPONIN-I < 0.010 ng/mL (0.00-0.033)
[2021-03-17 15:08] LABS: TRICYCLIC ANTIDEPRESS URINE NEGATIVE
--- NOTE | 2021-03-17 15:33 | NUR ---
MISS MOSER ARRIVED ON THE ICU UNIT AT 1533 BY ED STRETCHER. PATIENT WAS ALERT AND ABLE TO FOLLOW COMMANDS. BEAR HUGGER WAS CONTINUED AND LEVO WAS SET AT 0.22 MCG/KG/MIN FROM ED. SEE VITAL SIGNS. PT WAS PLACED ON AIRVO IN ED, CONTINUED IN ICU.
--- NOTE | 2021-03-17 20:00 | NUR ---
PT AWAKE, AAOX4. REPORTS GENERALIZED PAIN, DECREASED SENSATION IN BLE. EDEMA NOTED TO BLE, COLOR NORMAL WITH GOOD CAP REFIL. OLD VASCULAR INJURY AND SCARRING TO L RADIAL ARTERY, UNABLE TO PALPATE PULSE. COLOR/CAP REFUL INTACT. PT CURRENTLY ON AIRVO, O2 SAT 100%, REQUESTS TO TAKE IT OFF. WILL TRY NC. PERINIUM EXCORRIATED FROM RECENT LOOSE STOOLS. TRIED TO APPLY ESTEVAN-LOTION, PT SAID IT HANCOCK TOO MUCH AND REQUESTED NOTHING BE APPLIED. WILL CONTINUE TO MONITOR.
[2021-03-17 20:33] LABS: CREATININE, serum 0.56 mg/dL (0.57-1.11); MAGNESIUM 1.5 mg/dL (1.6-2.6); POTASSIUM 3.1 mmol/L (3.5-4.5)
[2021-03-17 21:33] LABS: C-REACTIVE PROTEIN 2.43 mg/dL (0.00-0.50)
[2021-03-18] VITALS (645 sets, daily range): BP systolic 88–141; BP diastolic 50–86; PULSE 85–194; TEMP 97.4–98.5; O2SAT 83–100
--- NOTE | 2021-03-18 | NUR ---
ARTERIAL LINE PLACED AT BEDSIDE BY SAADF HAINES CRNA IN R RADIAL ARTERY. TRANSDUCER LEVELED AND ZEROED. PT REFUSES TO WEAR BP CUFF, WILL MONITOR BP BY ARTERIAL LINE. PT REPORTS TRAMADOL DOESNT REALLY WORK, BUT HAS BEEN ABLE TO REST OFF AN ON. WILL CONTINUE TO MONITOR.
[2021-03-18 02:45] LABS: ARTERIAL BLD GAS O2 SATURATION 84.1 % (92-100); ARTERIAL BLD GAS TCO2 CT 19.2; ARTERIAL BLOOD GAS BASE EXCESS -4.4 (-2-2); ARTERIAL BLOOD GAS HCO3 18.4 meq/L (22-26); ARTERIAL BLOOD GAS PCO2 26.2 mmHg (35-45); ARTERIAL BLOOD GAS PO2 50.2 mmHg (80-100); ARTERIAL BLOOD GAS pH 7.47 (7.35-7.45)
--- NOTE | 2021-03-18 04:00 | NUR ---
PT RECIEVING 500ML NS BOLUSES BASED ON CVP UNDER 8. FIRST THREE DOSES GIVEN, CVP READING 9. WILL CONTINUE TO MONITOR.
[2021-03-18 05:28] LABS: MEAN CELL VOLUME 92 fl (80.0-100.0); MEAN CORPUSCULAR HGB CONC 35 g/dl (33.0-37.0); MEAN PLATELET VOLUME 10.7 fl (7.4-10.4); PLATELET COUNT 174 K/mm3 (130-400); RED BLOOD COUNT 2.99 M/mm3 (4.10-5.30); REDCELL DISTRIBUTION WIDTH-CV 17.1 % (11.5-14.5)
[2021-03-18 05:39] LABS: HEMATOCRIT 27.6 % (37.0-47.0); HEMOGLOBIN 9.7 g/dl (12.5-16.0); MEAN CORPUSCULAR HEMOGLOBIN 32 pg (27.0-31.0)
[2021-03-18 05:51] LABS: CREATININE, serum 0.65 mg/dL (0.57-1.11); MAGNESIUM 2.1 mg/dL (1.6-2.6); POTASSIUM 3.6 mmol/L (3.5-4.5)
[2021-03-18 06:23] LABS: BAND 24 % (0-10); LYMPHOCYTE 4 % (20.0-51.0); METAMYELOCYTE 2 % (0-0); NEUTROPHILS 67 % (42.0-75.2); PLATELET ESTIMATE NORMAL (NORMAL)
[2021-03-18 06:24] LABS: ANISOCYTOSIS 1+
[2021-03-18 06:25] LABS: TARGET CELLS 1+
[2021-03-18 10:19] LABS: PATHOLOGY DIFF REVIEW OK
--- NOTE | 2021-03-18 11:07 | NUR ---
Patient reporting 10/10 right "kidney" pain. States that this is chronic and just "suffers" with it at home. Told this nurse she is supposed to have it "removed" but was unable to specify why. Hospitalist notified and received order for a lidocaine patch. Patient has generalized swelling, however, right arm is more swollen than the left. Picc is in the right armm. Hospitalist notified. Requested this nurse try to wrap arm to help push the swelling up and try to elevate the arm.
--- NOTE | 2021-03-18 17:29 | NUR ---
Patient resting in bed with eyes shut at this time. Call light left within reach; will continue to monitor.
[2021-03-19] VITALS (718 sets, daily range): BP systolic 101–127; BP diastolic 54–71; PULSE 84–101; TEMP 97.6–97.9; O2SAT 76–100
--- NOTE | 2021-03-19 04:45 | NUR ---
PT HAVING INCREASED SOA, LUNG SOUNDS INCREASINGLY COARSE WITH AUDIBLE WHEEZES. CALL TO MATILDA DEMPSEY. LASIX 10MG IV ORDERED AND WILL CALL BACK ABOUT EFFECT.
[2021-03-19 05:02] LABS: ARTERIAL BLD GAS TCO2 CT 22.1; ARTERIAL BLOOD GAS BASE EXCESS -4.3 (-2-2); ARTERIAL BLOOD GAS HCO3 20.9 meq/L (22-26); ARTERIAL BLOOD GAS PCO2 38.8 mmHg (35-45); ARTERIAL BLOOD GAS PO2 55.4 mmHg (80-100); ARTERIAL BLOOD GAS pH 7.35 (7.35-7.45)
--- NOTE | 2021-03-19 05:45 | NUR ---
CALL BACK TO MATILDA DEMPSEY, NO NOTICIBLE EFFECT FROM LASIX DOES AFTER 30 MINUTES. ORDER TO REPEAT MED AT SAME DOSE. RT SET PT ON BIPAP, 16/10 RATE OF 24, FIO2 45%.
[2021-03-19 06:16] LABS: MEAN CORPUSCULAR HGB CONC 34 g/dl (33.0-37.0); PLATELET COUNT 105 K/mm3 (130-400); RED BLOOD COUNT 2.19 M/mm3 (4.10-5.30); REDCELL DISTRIBUTION WIDTH-CV 18.4 % (11.5-14.5)
--- NOTE | 2021-03-19 06:30 | NUR ---
PT TOLERATING BIPAP WELL, STATES IT IS HELPING. CLEANED OF INCONTINENT STOOL AT THIS TIME, HELPED REPOSITION PT PER COMFORT.
[2021-03-19 06:37] LABS: ALBUMIN 2.8 gm/dL (3.5-5.0); BILIRUBIN,TOTAL 0.8 mg/dL (0.2-1.2); C-REACTIVE PROTEIN 1.34 mg/dL (0.00-0.50); CALCIUM 7.7 mg/dL (8.4-10.2); CREATININE, serum 0.82 mg/dL (0.57-1.11); POTASSIUM 3.5 mmol/L (3.5-4.5); TOTAL PROTEIN 4.4 gm/dL (6.2-8.1)
[2021-03-19 06:44] LABS: HEMATOCRIT 21.4 % (37.0-47.0); HEMOGLOBIN 7.2 g/dl (12.5-16.0); MEAN CELL VOLUME 98 fl (80.0-100.0); MEAN CORPUSCULAR HEMOGLOBIN 33 pg (27.0-31.0)
--- NOTE | 2021-03-19 06:47 | NUR ---
PT SLEEPING, AWAKES EASILY WHEN DOOR TO ROOM OPENED. VISIBLY INCREASED WORK OF BREATHING. PT STATES IS OK, BUT STATES SHE IS HOT AND ASKING FOR O2 TO BE TURNED UP. O2 SAT AROUND 92%. DISCUSSED WITH RT WELL, INCREASED O2 VIA NC TO 4L AND WILL CONTIUE TO MONITOR FOR INCREASED DISTRESS.
[2021-03-19 06:56] LABS: ANISOCYTOSIS 1+; HYPOCHROMIA 1+; LYMPHOCYTE 17 % (20.0-51.0); METAMYELOCYTE 1 % (0-0); NEUTROPHILS 82 % (42.0-75.2); POIKILOCYTOSIS 1+
[2021-03-19 06:57] LABS: OVALOCYTES 1+; PLATELET ESTIMATE INCREASED (NORMAL); TARGET CELLS 1+
--- NOTE | 2021-03-19 09:56 | NUR ---
Oxygen probe not reading accurately and ranging mid to upper 80's. Entered room and changed probe to a finger. 02 reading showing 70% with a good waveform. 02 increased to 100% and RT and Dr. De La Torre notified. Dr. De La Torre ordered breathing treatment and lasix and adjusted BIPAP settings. 02 up to 95% after approximately 10 min. Will continue to monitor.
--- NOTE | 2021-03-19 13:37 | NUR ---
hgb 7.2 this am. Order for a repeat H&H this afternoon. Clarified with Dr. De La Torre if it was ok to administer lovenox at this time. Recieved ok to administer.
--- NOTE | 2021-03-19 15:25 | NUR ---
Patient tolerating BIPAP well. Has been drowsy this shift but awakes with verbal or light physical stimuli. Will answer questions appropriately and follow commands but falls asleep quickly without stimuli. VS stable at this time. Call light left within reach; will continue to monitor.
[2021-03-19 17:09] LABS: MEAN CELL VOLUME 101 fl (80.0-100.0); MEAN CORPUSCULAR HGB CONC 32 g/dl (33.0-37.0); MEAN PLATELET VOLUME 10.4 fl (7.4-10.4); PLATELET COUNT 111 K/mm3 (130-400); RED BLOOD COUNT 2.55 M/mm3 (4.10-5.30); REDCELL DISTRIBUTION WIDTH-CV 18.5 % (11.5-14.5)
[2021-03-19 17:20] LABS: HEMATOCRIT 25.8 % (37.0-47.0); HEMOGLOBIN 8.2 g/dl (12.5-16.0); MEAN CORPUSCULAR HEMOGLOBIN 32 pg (27.0-31.0)
[2021-03-19 17:43] LABS: BAND 11 % (0-10); LYMPHOCYTE 7 % (20.0-51.0); METAMYELOCYTE 3 % (0-0); NEUTROPHILS 77 % (42.0-75.2); PLATELET ESTIMATE DECREASED (NORMAL)
[2021-03-19 17:45] LABS: ANISOCYTOSIS 2+; TARGET CELLS 2+
[2021-03-19 17:46] LABS: HYPOCHROMIA 2+; STOMATOCYTE 1+
--- NOTE | 2021-03-19 18:05 | NUR ---
Called critical vancomycin trough to doreen Bermudez.
[2021-03-20] VITALS (716 sets, daily range): BP systolic 93–119; BP diastolic 54–67; PULSE 67–94; TEMP 97–97.8; O2SAT 89–100
--- NOTE | 2021-03-20 | NUR ---
PT ASLEEP, EASY TO AROUSE FOR ASSESSMENT. HELPED TO REMOVE BIPAP MASK TEMPORARILY TO DRINK WATER. PT REQUESTS MASK BACK ON WITHIN 2 MINUTES. TOLERATES BIPAP WELL. WILL CONTINUE TO MONITOR.
[2021-03-20 05:06] LABS: MEAN CELL VOLUME 100 fl (80.0-100.0); MEAN CORPUSCULAR HGB CONC 32 g/dl (33.0-37.0); MEAN PLATELET VOLUME 10.8 fl (7.4-10.4); PLATELET COUNT 86 K/mm3 (130-400); RED BLOOD COUNT 2.35 M/mm3 (4.10-5.30); REDCELL DISTRIBUTION WIDTH-CV 18.5 % (11.5-14.5)
[2021-03-20 05:34] LABS: BILIRUBIN,TOTAL 0.9 mg/dL (0.2-1.2); C-REACTIVE PROTEIN 1.7 mg/dL (0.00-0.50); CALCIUM 7.6 mg/dL (8.4-10.2); CREATININE, serum 1.2 mg/dL (0.57-1.11); POTASSIUM 3.1 mmol/L (3.5-4.5); TOTAL PROTEIN 4.1 gm/dL (6.2-8.1)
[2021-03-20 05:55] LABS: HEMATOCRIT 23.4 % (37.0-47.0); HEMOGLOBIN 7.5 g/dl (12.5-16.0); MEAN CORPUSCULAR HEMOGLOBIN 32 pg (27.0-31.0)
[2021-03-20 05:57] LABS: BAND 23 % (0-10); LYMPHOCYTE 23 % (20.0-51.0); NEUTROPHILS 52 % (42.0-75.2); PLATELET ESTIMATE DECREASED (NORMAL)
--- NOTE | 2021-03-20 10:15 | NUR ---
Patient requesting to try a break from bipap to try a high flow nasal cannula. Initially became very anxious when on the the cannula. However after speaking calmly to the patient was able to calm down and remain 91-94% on 15L HF NC. Remained on the cannula for appproximately 10 minutes before requesting to go back on BIPAP due to humidification from the cannula "leaking" water in her nose. Will continue to monitor.
--- NOTE | 2021-03-20 12:34 | NUR ---
Occult stool postitive. Hospitalist notified and will hold lovenox at this time.
[2021-03-20 18:26] LABS: HEMATOCRIT 22.7 % (37.0-47.0); HEMOGLOBIN 7.1 g/dl (12.5-16.0)
--- NOTE | 2021-03-20 19:26 | NUR ---
Reported hgb of 7.1 to TIFFANIE Alonzo. Will obtain a type and screen and obtain a CBC in the am.
[2021-03-21] VITALS (719 sets, daily range): BP systolic 81–104; BP diastolic 46–70; PULSE 76–99; TEMP 96.6–97.8; O2SAT 75–100
[2021-03-21 05:50] LABS: MEAN CELL VOLUME 99 fl (80.0-100.0); MEAN CORPUSCULAR HGB CONC 32 g/dl (33.0-37.0); PLATELET COUNT 87 K/mm3 (130-400); RED BLOOD COUNT 2.23 M/mm3 (4.10-5.30); REDCELL DISTRIBUTION WIDTH-CV 18.6 % (11.5-14.5)
[2021-03-21 05:52] LABS: HEMATOCRIT 22.1 % (37.0-47.0); MEAN CORPUSCULAR HEMOGLOBIN 31 pg (27.0-31.0)
--- NOTE | 2021-03-21 06:05 | NUR ---
PT A/O X4. TOLERATING BIPAP. PT DID TOLERATE HIGH FLOW NC AT 12L TO TAKE EVENING MEDS, DRINK ENSURE, AND SPEAK WITH MOM ON PHONE. OUTPUT POOR OVERNIGHT. FLUSHED TEE. NOTIFIED JESSICA MORENO DOCUMENTED. IVF INCREASED TO 100ML/HR AT 0400. COMPLAINTS OF PAIN IN LEGS. PRN TRAMADOL GIVEN DOCUMENTED IN JUN. PT SLEPT WELL WHEN NOT DISTURBED. RESTING IN BED WITH EYES CLOSED. CALL LIGHT WITHIN REACH.
[2021-03-21 06:06] LABS: ALBUMIN 1.8 gm/dL (3.5-5.0); BILIRUBIN,TOTAL 0.4 mg/dL (0.2-1.2); C-REACTIVE PROTEIN 1.46 mg/dL (0.00-0.50); CALCIUM 7.6 mg/dL (8.4-10.2); CREATININE, serum 1.46 mg/dL (0.57-1.11); POTASSIUM 3.6 mmol/L (3.5-4.5)
[2021-03-21 06:07] LABS: IRON,SERUM 46 ug/dL (50-175)
[2021-03-21 06:22] LABS: BAND 6 % (0-10); HYPOCHROMIA 1+; LYMPHOCYTE 20 % (20.0-51.0); METAMYELOCYTE 4 % (0-0); MYELOCYTE 1 % (0-0); NEUTROPHILS 67 % (42.0-75.2); POIKILOCYTOSIS 1+
[2021-03-21 06:23] LABS: ANISOCYTOSIS 1+; OVALOCYTES 1+; PLATELET ESTIMATE DECREASED (NORMAL); TARGET CELLS 1+
--- NOTE | 2021-03-21 09:30 | NUR ---
PICC intact right upper arm with dressing intact. no date on dressing. foam not present on stat lock. according to patient's primary care nurse yesturday, PICC was pulled back to obtain CVP readings. PICC intact with sterile dressing change done with insertion site cleansed with chloraprep x 1, chorhexidine disk applied, skin prep, stat lock, and tegaderm applied. no signs or symptoms of IV complications noted. no concerns voiced. re-wrapped with an karine to protect catheter.
--- NOTE | 2021-03-21 10:09 | NUR ---
REPORT RECEIVED FROM TONIO MILLER. PATIENT CURRENTLY RESTING COMFORTABLY IN BED. BLOOD PRESSURE IS SLIGHTLY LOW, WITH THE ART LINE READING 90S/50S.
--- NOTE | 2021-03-21 10:21 | NUR ---
Horse Show Judge contacted patient's mother, Anjali (ph#[phone]) to complete intake as patient has been on bipap and is in COVID isolation. Patient was found on a bench prior to being admitted to the hospital and is reportedly homeless. Anjali advised that patient recently lost her apartment and her belongings are with [employer], a local program that assists people who are homeless. Anjali advised patient had also been living in an at one time. Anjali is unsure if patient has a current primary care physician. JOHN asked Anjali if patient was and Anjali advised she wasn't sure if patient was still or . Patient is self pay so JOHN consulted Financial Counseling. JOHN will continue to follow to assist with discharge planning.
[2021-03-21 13:13] LABS: HEMATOCRIT 20.9 % (37.0-47.0); HEMOGLOBIN 6.7 g/dl (12.5-16.0)
--- NOTE | 2021-03-21 17:23 | NUR ---
PATIENT RECEIVED ONE UNIT OF PRBCS THIS AFTERNOON, STARTING AT 1515. NO ABNORMAL REACTIONS NOTED AND PATIENT HAS REMAINED STABLE SINCE INITIATING. BLOOD IN IS INFUSING AT 100 ML/HR.
[2021-03-22] VITALS (681 sets, daily range): BP systolic 94–107; BP diastolic 56–75; PULSE 71–90; TEMP 97.2–98.5; O2SAT 74–100
[2021-03-22 04:06] LABS: BASO % 0.2 % (0.0-2.0); GRAN # 8.1 K/mm3 (1.4-6.5); GRAN % 71.3 % (42.2-75.2); LYMPH % 17.4 % (20.0-51.0); MEAN CELL VOLUME 96 fl (80.0-100.0); MEAN CORPUSCULAR HGB CONC 33 g/dl (33.0-37.0); MEAN PLATELET VOLUME 11.5 fl (7.4-10.4); MONO # 0.4 K/mm3 (0.1-0.6); MONO % 3.8 % (1.7-9.3); PLATELET COUNT 81 K/mm3 (130-400); RED BLOOD COUNT 2.83 M/mm3 (4.10-5.30); REDCELL DISTRIBUTION WIDTH-CV 18.6 % (11.5-14.5)
[2021-03-22 04:08] LABS: HEMATOCRIT 27.2 % (37.0-47.0); MEAN CORPUSCULAR HEMOGLOBIN 32 pg (27.0-31.0)
[2021-03-22 04:18] LABS: ALBUMIN 1.7 gm/dL (3.5-5.0); CALCIUM 7.8 mg/dL (8.4-10.2); CREATININE, serum 1.44 mg/dL (0.57-1.11); MAGNESIUM 1.8 mg/dL (1.6-2.6); PHOSPHOROUS 1.8 mg/dL (2.3-4.7); POTASSIUM 4.2 mmol/L (3.5-4.5)
[2021-03-22 04:24] LABS: ALBUMIN 1.7 gm/dL (3.5-5.0); BILIRUBIN,TOTAL 0.4 mg/dL (0.2-1.2); CALCIUM 7.6 mg/dL (8.4-10.2); CREATININE, serum 1.44 mg/dL (0.57-1.11); POTASSIUM 4.2 mmol/L (3.5-4.5)
[2021-03-22 04:51] LABS: ANISOCYTOSIS 1+; BAND 4 % (0-10); HYPOCHROMIA 1+; LYMPHOCYTE 20 % (20.0-51.0); NEUTROPHILS 73 % (42.0-75.2); OVALOCYTES 1+; POIKILOCYTOSIS 1+
[2021-03-22 04:52] LABS: PLATELET ESTIMATE DECREASED (NORMAL); TARGET CELLS 1+
--- NOTE | 2021-03-22 11:15 | NUR ---
Patient requesting to go back onto BIPAP to take a nap. No other concerns or complaints at this time.m
--- NOTE | 2021-03-22 18:00 | NUR ---
Patient had an incontinent stool; assisted with per-care. Alternates between HF NC and BIPAP as tolerated. Requesting to go back on BIPAP at this time to take a "nap". No other concerns or complaints at this time.
[2021-03-23] VITALS (216 sets, daily range): BP systolic 97–141; BP diastolic 62–85; PULSE 71–101; TEMP 96.4–99; O2SAT 94–100
[2021-03-23 05:52] LABS: MEAN CELL VOLUME 97 fl (80.0-100.0); MEAN CORPUSCULAR HGB CONC 33 g/dl (33.0-37.0); MEAN PLATELET VOLUME 11.5 fl (7.4-10.4); PLATELET COUNT 92 K/mm3 (130-400); RED BLOOD COUNT 2.29 M/mm3 (4.10-5.30); REDCELL DISTRIBUTION WIDTH-CV 18.8 % (11.5-14.5)
[2021-03-23 05:54] LABS: HEMATOCRIT 22.2 % (37.0-47.0); HEMOGLOBIN 7.3 g/dl (12.5-16.0); MEAN CORPUSCULAR HEMOGLOBIN 32 pg (27.0-31.0)
[2021-03-23 06:28] LABS: ALBUMIN 2.2 gm/dL (3.5-5.0); BILIRUBIN,TOTAL 0.5 mg/dL (0.2-1.2); C-REACTIVE PROTEIN 1.09 mg/dL (0.00-0.50); CALCIUM 7.7 mg/dL (8.4-10.2); CREATININE, serum 1.4 mg/dL (0.57-1.11); MAGNESIUM 1.7 mg/dL (1.6-2.6); POTASSIUM 4.4 mmol/L (3.5-4.5); TOTAL PROTEIN 4.4 gm/dL (6.2-8.1)
[2021-03-23 06:30] LABS: BAND 18 % (0-10); LYMPHOCYTE 14 % (20.0-51.0); METAMYELOCYTE 2 % (0-0); NEUTROPHILS 63 % (42.0-75.2); PLATELET ESTIMATE DECREASED (NORMAL)
[2021-03-23 06:31] LABS: ANISOCYTOSIS 1+; HYPOCHROMIA 1+; TARGET CELLS 1+
--- NOTE | 2021-03-23 06:37 | NUR ---
PT A/O X4. RESTED WELL. REQUESTS BIPAP WHEN NOT EATING/DRINKING. TEE PATENT AND DRAINING WITH ADEQUATE URINE OUTPUT. PT REQUESTS PRN TRAMADOL AT TIME IT IS DUE. GIVEN DOCUMENTED. DOUBLE LUMEN PICC ASPIRATES AND FLUSHES WELL. CALL LIGHT WITHIN REACH. RESTING IN BED WITH EYES CLOSED.
--- NOTE | 2021-03-23 07:00 | NUR ---
PT RESTING IN BED ON BIPAP. VSS. WILL CONTINUE TO MONITOR.
--- NOTE | 2021-03-23 19:20 | NUR ---
Received report from TONIO Rodriguez.
--- NOTE | 2021-03-23 21:00 | NUR ---
Patient resting quietly in bed. Reports tightness/pain in legs rated 8/10. PRN Tramadol administered. All vitals within normal limits. She alternates between BiPap at 40% and high-flow nasal cannula at 12L; both are tolerated well with sats 95% or higher.
[2021-03-24] VITALS (10 sets, daily range): BP systolic 102–120; BP diastolic 67–78; PULSE 76–102; TEMP 97.4–98.9
[2021-03-24 05:12] LABS: ALBUMIN 2.5 gm/dL (3.5-5.0); BILIRUBIN,TOTAL 0.6 mg/dL (0.2-1.2); CALCIUM 8.7 mg/dL (8.4-10.2); PHOSPHOROUS 3.9 mg/dL (2.3-4.7); POTASSIUM 3.3 mmol/L (3.5-4.5); TOTAL PROTEIN 4.5 gm/dL (6.2-8.1)
[2021-03-24 05:30] LABS: CREATININE, serum 1.48 mg/dL (0.57-1.11)
[2021-03-24 06:11] LABS: MEAN CELL VOLUME 96 fl (80.0-100.0); MEAN CORPUSCULAR HGB CONC 33 g/dl (33.0-37.0); MEAN PLATELET VOLUME 10.9 fl (7.4-10.4); PLATELET COUNT 98 K/mm3 (130-400); RED BLOOD COUNT 2.17 M/mm3 (4.10-5.30); REDCELL DISTRIBUTION WIDTH-CV 18.8 % (11.5-14.5)
[2021-03-24 06:14] LABS: HEMATOCRIT 20.8 % (37.0-47.0); HEMOGLOBIN 6.9 g/dl (12.5-16.0); MEAN CORPUSCULAR HEMOGLOBIN 32 pg (27.0-31.0)
[2021-03-24 06:29] LABS: BASOPHIL 1 % (0-2); LYMPHOCYTE 20 % (20.0-51.0); METAMYELOCYTE 4 % (0-0); NEUTROPHILS 68 % (42.0-75.2)
[2021-03-24 06:30] LABS: PLATELET ESTIMATE DECREASED (NORMAL)
[2021-03-24 06:31] LABS: ANISOCYTOSIS 2+
--- NOTE | 2021-03-24 08:00 | NUR ---
THIS NURSE IS BEDSIDE, PATIENT IS EATING BREAKFAST. PATIENT STATED THAT SHE FEELS BETTER AND KNOWS HOW TO REMOVED AND PUT BACK ON THE BIPAP MASK AND HOW TO PUT ON THE HIGH FLOW NC. SHE STATED THAT SHE IS READY TO GO HOME TO HER MOMS FRIENDS HOUSE.
--- NOTE | 2021-03-24 15:24 | NUR ---
AT THIS TIME, THIS NURSE IS BEDSIDE STARTING PRBC 1 UNIT TO MISS MOSER. THE PATIENT RECIEVED 1 UNIT A COUPLE DAYS AGO AND HAD NO ADVERSE REACTIONS. BLOOD WAS STARTED AT 65 ML HOUR PER PROTOCOL AND WILL INCREASE TO 200 PATIENT TOLERATES. PATIENT IS A FEBRILE.
--- NOTE | 2021-03-24 19:15 | NUR ---
Received report from TONIO Romero.
--- NOTE | 2021-03-24 21:30 | NUR ---
Patient resting quietly in bed watching television. She alternates between high-flow nasal cannula at 12L/min and BiPap at 40% FiO2 04/05; both are tolerated well. All vitals within normal limits. Reports tolerable pain at this time, denies needing further medication for management.
[2021-03-24 21:46] LABS: HEMATOCRIT 24.8 % (37.0-47.0); HEMOGLOBIN 8.1 g/dl (12.5-16.0)
[2021-03-25] VITALS: BP 108/71; PULSE 95; TEMP 98.2
[2021-03-25 04:00] VITALS: BP 114/70; PULSE 90; TEMP 97.8
[2021-03-25 06:48] LABS: MEAN CELL VOLUME 93 fl (80.0-100.0); MEAN CORPUSCULAR HGB CONC 34 g/dl (33.0-37.0); MEAN PLATELET VOLUME 10.9 fl (7.4-10.4); PLATELET COUNT 151 K/mm3 (130-400); RED BLOOD COUNT 2.53 M/mm3 (4.10-5.30); REDCELL DISTRIBUTION WIDTH-CV 18.3 % (11.5-14.5)
[2021-03-25 06:49] LABS: HEMATOCRIT 23.6 % (37.0-47.0); MEAN CORPUSCULAR HEMOGLOBIN 32 pg (27.0-31.0)
[2021-03-25 07:10] LABS: ALBUMIN 2.7 gm/dL (3.5-5.0); CREATININE, serum 1.33 mg/dL (0.57-1.11); MAGNESIUM 1.4 mg/dL (1.6-2.6); PHOSPHOROUS 2.1 mg/dL (2.3-4.7); POTASSIUM 3.4 mmol/L (3.5-4.5)
[2021-03-25 07:41] LABS: BAND 4 % (0-10); LYMPHOCYTE 24 % (20.0-51.0); METAMYELOCYTE 2 % (0-0); NEUTROPHILS 64 % (42.0-75.2)
[2021-03-25 07:45] LABS: ANISOCYTOSIS 2+; PLATELET ESTIMATE NORMAL (NORMAL)
[2021-03-25 07:48] LABS: TARGET CELLS 2+
[2021-03-25 08:30] VITALS: BP 110/74; PULSE 97; TEMP 98.5
[2021-03-25 10:05] LABS: PATHOLOGY DIFF REVIEW OK
--- NOTE | 2021-03-25 10:58 | NUR ---
Report recieved from TONIO Mahajan.
[2021-03-25 12:05] VITALS: BP 114/62; PULSE 106; TEMP 98.4
[2021-03-25 17:35] VITALS: BP 110/72; PULSE 97; TEMP 98.3
--- NOTE | 2021-03-25 18:30 | NUR ---
Patient admitted to room 306 from ICU. Patient currently requiring 4L of O2 via nasal cannula. No s/s of complications from PICC line. Flushes with good blood return. Multiple skin issues noted in shift assessment. Patient extremely weak. Fall precautions in place. Carrasco catheter in place. Securment device in use. Patient denies any further needs at this time. Call light in reach.VSS. Patient A&O. Report given to TONIO Pinto.
[2021-03-25 19:33] VITALS: BP 125/76; PULSE 85; TEMP 98.5
[2021-03-26 00:55] VITALS: BP 121/77; PULSE 116; TEMP 98.5
[2021-03-26 04:00] VITALS: BP 120/71; PULSE 97; TEMP 98.1
--- NOTE | 2021-03-26 05:39 | NUR ---
PT HAD UNEVENTFUL NIGHT THIS SHIFT. PT WORE BIPAP MAJORITY OF THE NIGHT. RANDAL C&D. I&O NOTED AND RECORDED. ALL NEEDS MET THIS NIGHT. CALL LIGHT WITHIN REACH.
[2021-03-26 06:51] LABS: MEAN CELL VOLUME 96 fl (80.0-100.0); MEAN CORPUSCULAR HGB CONC 32 g/dl (33.0-37.0); MEAN PLATELET VOLUME 10.7 fl (7.4-10.4); PLATELET COUNT 190 K/mm3 (130-400); RED BLOOD COUNT 2.48 M/mm3 (4.10-5.30); REDCELL DISTRIBUTION WIDTH-CV 18.6 % (11.5-14.5)
--- NOTE | 2021-03-26 07:00 | NUR ---
Patient awake in bed at this time. Bipap on. Lidocaine patch applied for flank pain rated a 10/10. Patient denies any further needs at this time. Call light in reach. Fall precautions in place.
[2021-03-26 07:07] LABS: HEMOGLOBIN 7.7 g/dl (12.5-16.0); MEAN CORPUSCULAR HEMOGLOBIN 31 pg (27.0-31.0)
[2021-03-26 07:08] LABS: HEMATOCRIT 23.9 % (37.0-47.0)
[2021-03-26 07:18] LABS: ALBUMIN 3.1 gm/dL (3.5-5.0); CALCIUM 9.1 mg/dL (8.4-10.2); CREATININE, serum 1.15 mg/dL (0.57-1.11); POTASSIUM 3.9 mmol/L (3.5-4.5); TOTAL PROTEIN 5.3 gm/dL (6.2-8.1)
[2021-03-26 08:17] LABS: METAMYELOCYTE 1 % (0-0); MYELOCYTE 1 % (0-0)
[2021-03-26 08:18] LABS: ANISOCYTOSIS 2+; HYPOCHROMIA 1+; PLATELET ESTIMATE NORMAL (NORMAL); TARGET CELLS 2+
[2021-03-26 08:20] LABS: BAND 5 % (0-10); LYMPHOCYTE 27 % (20.0-51.0); NEUTROPHILS 56 % (42.0-75.2)
[2021-03-26 09:10] VITALS: BP 110/64; PULSE 102; TEMP 98.6
--- NOTE | 2021-03-26 11:07 | NUR ---
Scheduled medications given. Shift assessment completed. Multiple skin issues noted in shift assessment. PRN pain medication given for 10/10 back pain. Patient denies any further needs at this time .Call light in reach. Fall percautions in place. VSS. Patient A&O.
[2021-03-26 12:41] VITALS: BP 112/63; PULSE 96; TEMP 98.8
[2021-03-26 17:12] VITALS: BP 115/70; PULSE 96; TEMP 98.3
--- NOTE | 2021-03-26 18:40 | NUR ---
Patient has had an ok day. Currently requiring 4L of O2 via nasal cannula. PRN pain meds given twice this shift. Patient has had 2 episodes of mucousy diarrhea this shift. Urine has become cloudy. Dr. Yeh contacted. GI panel and urine culture ordered. Patient denies any further needs at this time. Call light in reach. VSS. Patient A&O. Fall precautions in place.
[2021-03-26 19:44] VITALS: BP 123/70; PULSE 92; TEMP 98.6
[2021-03-27] VITALS (7 sets, daily range): BP systolic 87–121; BP diastolic 49–78; PULSE 71–99; TEMP 97.1–98.2
--- NOTE | 2021-03-27 05:02 | NUR ---
PT HAD UNEVENTFUL NIGHT THIS SHIFT. PT WORE BIPAP ALL NIGHT WITH 02 SATURATIONS RANGING FROM 90-94 PERCENT. PT CONTINUES TO C/O PAIN TO BLE, THIGHS AND BACK AT 8/10. MEDICATION ADMINISTERED ORDERED AND COMFORT MEASURES PROVIDED.RANDAL C&D. THIS NURSE PROVIDED ESTEVAN CARE AND CHANGED BED LINENS. PT EXPRESSES NO ADDITIONAL NEEDS AT THIS TIME. CALL LIGHT WITHIN REACH.
--- NOTE | 2021-03-27 06:23 | NUR ---
DR GAMEZ CONSULTED THIS MORNING AT 0623. DR. GAMEZ VERBALIZES UNDERSTANDING OF CONSULT.
[2021-03-27 06:46] LABS: MEAN CELL VOLUME 99 fl (80.0-100.0); MEAN CORPUSCULAR HGB CONC 32 g/dl (33.0-37.0); MEAN PLATELET VOLUME 10.3 fl (7.4-10.4); PLATELET COUNT 243 K/mm3 (130-400); RED BLOOD COUNT 2.43 M/mm3 (4.10-5.30); REDCELL DISTRIBUTION WIDTH-CV 18.6 % (11.5-14.5)
[2021-03-27 06:54] LABS: HEMOGLOBIN 7.6 g/dl (12.5-16.0); MEAN CORPUSCULAR HEMOGLOBIN 31 pg (27.0-31.0)
[2021-03-27 07:11] LABS: ALBUMIN 2.7 gm/dL (3.5-5.0); C-REACTIVE PROTEIN 0.85 mg/dL (0.00-0.50); CALCIUM 8.6 mg/dL (8.4-10.2); CREATININE, serum 1.16 mg/dL (0.57-1.11); MAGNESIUM 1.5 mg/dL (1.6-2.6); PHOSPHOROUS 1.1 mg/dL (2.3-4.7); POTASSIUM 4.1 mmol/L (3.5-4.5)
[2021-03-27 08:51] LABS: HYPOCHROMIA 2+; LYMPHOCYTE 24 % (20.0-51.0); NEUTROPHILS 72 % (42.0-75.2); PLATELET ESTIMATE NORMAL (NORMAL)
[2021-03-27 08:52] LABS: ANISOCYTOSIS 1+; TARGET CELLS 2+
--- NOTE | 2021-03-27 12:20 | NUR ---
Patient in a very pleasant mood. Patient requested PRN tramadol for pain. Dr. Powers ordered for the steiner to be discontinued. Patient instructed to call anytime she needed to use the bathroom.
--- NOTE | 2021-03-27 18:28 | NUR ---
Patient has done well today. Patient was incontinent of bowel twice. Patient stood in bathroom and washed herself with warm bath wipes. Patient steady on her feet but remains weak. Instructed to use her call light at all times and not to get up on her own.
--- NOTE | 2021-03-27 22:15 | NUR ---
PT SITTING UP IN BED, LEGS ELEVATED. PT A/OX4, PT STATES SHE FEELS MUCH BETTER TODAY. 02 4L NC, PT 02 SATURATIONS 93 PERCENT. ASSESMENT COMPLETE. MEDICATIONS ADMINISTERED ORDERED. THIS NURSE CONDUCTED PT TEACHING ON PURPOSE OF WEANING, PT RELUCTANT TO TEACHING AND REFUSES TO WEAN DOWN ON 02. PT REQUIRES REVIEW/PRACTICE. PT INSTRUCTED TO CALL TO AMBULATE WITH ASSISTANCE. PT VERBALIZES UNDERSTANDING. BED ALARM ON. THIS NURSE WILL CONTINUE TO MONITOR PT.
[2021-03-28] VITALS: BP 113/75; PULSE 86; TEMP 98.2
[2021-03-28 03:54] VITALS: BP 117/74; PULSE 87; TEMP 98
--- NOTE | 2021-03-28 06:12 | NUR ---
PT SLEPT APPROXIMATELY 1-2 HOURS THIS NIGHT. ALL MEDICATIONS ADMINISTERED ORDERED. I&O NOTED AND RECORDED. PT ABLE TO AMBULATE TO BATHROOM VIA WALKER. ALL NEEDS MET THIS NIGHT. CALL LIGHT WITHIN REACH.
[2021-03-28 06:43] LABS: HEMATOCRIT 23.1 % (37.0-47.0); HEMOGLOBIN 7.2 g/dl (12.5-16.0); MEAN CELL VOLUME 100 fl (80.0-100.0); MEAN CORPUSCULAR HEMOGLOBIN 31 pg (27.0-31.0); MEAN CORPUSCULAR HGB CONC 31 g/dl (33.0-37.0); PLATELET COUNT 314 K/mm3 (130-400); RED BLOOD COUNT 2.31 M/mm3 (4.10-5.30); REDCELL DISTRIBUTION WIDTH-CV 18.6 % (11.5-14.5)
[2021-03-28 07:05] LABS: ALBUMIN 2.6 gm/dL (3.5-5.0); C-REACTIVE PROTEIN 0.8 mg/dL (0.00-0.50); CALCIUM 8.5 mg/dL (8.4-10.2); CREATININE, serum 1.03 mg/dL (0.57-1.11); MAGNESIUM 1.5 mg/dL (1.6-2.6); POTASSIUM 3.9 mmol/L (3.5-4.5)
[2021-03-28 07:30] LABS: LYMPHOCYTE 20 % (20.0-51.0); MYELOCYTE 2 % (0-0); NEUTROPHILS 67 % (42.0-75.2)
[2021-03-28 07:32] LABS: PLATELET ESTIMATE NORMAL (NORMAL)
[2021-03-28 07:33] LABS: ANISOCYTOSIS 1+
[2021-03-28 07:35] LABS: STOMATOCYTE 1+; TARGET CELLS 2+
[2021-03-28 08:40] VITALS: BP 119/67; PULSE 93; TEMP 98
--- NOTE | 2021-03-28 09:59 | NUR ---
Patient doing well with walking to the bathroom. Patient did ask for a PRN tramadol, patient was told she had 1 more hour before one could be given. Patient was understanding.
[2021-03-28 11:53] VITALS: BP 115/70; PULSE 90; TEMP 98.1
--- NOTE | 2021-03-28 13:26 | NUR ---
Patient given a PRN oxycodone for lower back pain. Patient informed on the change in her PRN medications and she was accepting of this. Patient has been moving around the room independently, she is steady on her feet. Patient refuses assistance with standing, stating, "I can do it on my own, I need to get my strength back".
--- NOTE | 2021-03-28 14:08 | NUR ---
SW contacted the patient to follow up and review discharge plan. The patient confirms that she has been homeless. She states that she was living with a friend in an apartment, but her friend left and she could not afford the apartment on her own. She reports that she has not been to the [facility] yet. SW inquired about staying with her mother, Anjali, upon discharge. The patient reports that her mother lives in , but that she just moved in with a friend, Azalia. Azalia has pets and the patient states that she cannot live with animals. The patient would be interested in the homeless intermediate. JOHN contacted Beverly, auto damage estimator, to inquire when the patient can come out of isolation. Beverly reports that she will be contacting the [facility] to find out when she can officially be taken out of isolation. JOHN contacted Gwendolyn at [facility], to inquire if the patient is on their Do Not Return List. Gwendolyn reports that the patient is not on that list and that she could come and stay there. She reports that they do have a bed available at this time, but will not be able to reserve it. Gwendolyn reports that the patient will also need to be able to get up stairs and that they would require documentation that the patient is out of isolation. JOHN staffed with PT. PT plans on working with the patient on stairs, once she gets out of isolation. Discharge plan: Tentatively the homeless intermediate, pending bed availability and if she can do stairs* JOHN made an APS report. Intake ID#[id number].
[2021-03-28 16:30] VITALS: BP 110/62; PULSE 91; TEMP 98.3
[2021-03-29 00:19] VITALS: BP 120/71; PULSE 94; TEMP 98.1
--- NOTE | 2021-03-29 05:29 | NUR ---
PT HAD UNEVENTFUL NIGHT THIS SHIFT. 02 REMAINS 2L NC, NO BIPAP OVERNIGHT. ALL MEDICATIONS ADMINISTERED ORDERED. I&O NOTED AND RECORDED. ALL NEEDS MET THIS SHIFT. CALL LIGHT WITHIN REACH.
[2021-03-29 05:38] VITALS: BP 102/40; PULSE 102; TEMP 98.4
--- NOTE | 2021-03-29 06:06 | NUR ---
AT 550 DURING LAB ROUNDS, PT 02 TO BE FOUND DESATTING AT 85 PERCENT AFTER AMBULATION, THIS NURSE ATTEMPTED TO INFORM PT OF 02 REQUIREMENTS. PT IS VERY RELUCTANT TO PT TEACHINGS AND INTERVENTIONS. PT INSTRUCTED TO ELEVATE LEGS THEY ARE +3 PITTING EDEMA. PT REFUSED.
[2021-03-29 06:47] LABS: BASO % 0.3 % (0.0-2.0); GRAN # 7.1 K/mm3 (1.4-6.5); GRAN % 62.9 % (42.2-75.2); LYMPH # 2.7 K/mm3 (1.2-3.4); MEAN CELL VOLUME 100 fl (80.0-100.0); MEAN CORPUSCULAR HGB CONC 32 g/dl (33.0-37.0); MEAN PLATELET VOLUME 9.8 fl (7.4-10.4); MONO # 1.3 K/mm3 (0.1-0.6); MONO % 11.5 % (1.7-9.3); PLATELET COUNT 403 K/mm3 (130-400); REDCELL DISTRIBUTION WIDTH-CV 19.1 % (11.5-14.5)
[2021-03-29 06:56] LABS: HEMOGLOBIN 7.6 g/dl (12.5-16.0); MEAN CORPUSCULAR HEMOGLOBIN 32 pg (27.0-31.0)
[2021-03-29 07:34] LABS: ALBUMIN 2.8 gm/dL (3.5-5.0); C-REACTIVE PROTEIN 0.61 mg/dL (0.00-0.50); CALCIUM 9.1 mg/dL (8.4-10.2); CREATININE, serum 1.09 mg/dL (0.57-1.11); MAGNESIUM 2.1 mg/dL (1.6-2.6); PHOSPHOROUS 2.7 mg/dL (2.3-4.7); POTASSIUM 4.4 mmol/L (3.5-4.5)
[2021-03-29 08:00] VITALS: BP 108/64; PULSE 93; TEMP 98.3
--- NOTE | 2021-03-29 08:30 | NUR ---
PT PLEASANT, AOX4, USES WALKER INDEPENDENTLY IN ROOM, STEADY GAIT, ON OXYGEN, PT REPORTS PAIN IN LOW BACK, LIDOCAINE PATCH APPLIED, MEDS GIVEN, BREAKFAST BROUGHT IN FOR PT, RUBEN INFECTION CONTROL REPORTED PT COULD BE OUT OF ISOLATION, WILL MOVE WHEN ROOM BECOMES AVAILABLE
[2021-03-29 12:19] VITALS: BP 120/66; PULSE 91; TEMP 98.4
[2021-03-29 16:00] VITALS: BP 112/67; PULSE 86; TEMP 98.4
--- NOTE | 2021-03-29 18:32 | NUR ---
PT RESTING IN BED EATING DINNER, DENIES PAIN AT THIS TIME
[2021-03-29 21:53] VITALS: BP 103/61; PULSE 88; TEMP 98.2
[2021-03-30] VITALS (10 sets, daily range): BP systolic 107–124; BP diastolic 48–72; PULSE 80–88; TEMP 98.1–98.4
--- NOTE | 2021-03-30 05:42 | NUR ---
Rested quietly throughout the night, no c/o at this time, call nelida w/i heather.
[2021-03-30 07:05] LABS: BASO % 0.3 % (0.0-2.0); GRAN # 5.9 K/mm3 (1.4-6.5); GRAN % 57.8 % (42.2-75.2); LYMPH % 29.6 % (20.0-51.0); MEAN CELL VOLUME 100 fl (80.0-100.0); MEAN CORPUSCULAR HGB CONC 32 g/dl (33.0-37.0); MEAN PLATELET VOLUME 9.6 fl (7.4-10.4); MONO # 1.1 K/mm3 (0.1-0.6); MONO % 11.2 % (1.7-9.3); PLATELET COUNT 406 K/mm3 (130-400); REDCELL DISTRIBUTION WIDTH-CV 19.4 % (11.5-14.5)
[2021-03-30 07:15] LABS: HEMOGLOBIN 6.3 g/dl (12.5-16.0); MEAN CORPUSCULAR HEMOGLOBIN 32 pg (27.0-31.0)
--- NOTE | 2021-03-30 07:42 | NUR ---
CRITICAL HEMOGLOBIN CALLED TO NURSE, CRITICAL RELAYED TO DR. MATTHEWS, ORDERED ONE UNIT OF PRBC, ORDERED TO RECONSULT GI. GI CONSULTED, GAVE ORDER TO PLACE PT ON CLEAR LIQUID DIET, PLAN TO SCOPE TOMORROW UNLESS EMERGENT. ORDER FOR BLOOD AND CLD PLACED BASED ON VERBAL ORDERS.
[2021-03-30 08:01] LABS: ALBUMIN 2.6 gm/dL (3.5-5.0); C-REACTIVE PROTEIN 0.4 mg/dL (0.00-0.50); CALCIUM 8.9 mg/dL (8.4-10.2); CREATININE, serum 1.09 mg/dL (0.57-1.11); MAGNESIUM 1.9 mg/dL (1.6-2.6); PHOSPHOROUS 2.8 mg/dL (2.3-4.7); POTASSIUM 3.8 mmol/L (3.5-4.5)
--- NOTE | 2021-03-30 09:07 | NUR ---
PT AOX4, VITALS TAKEN AND REVIEWED, MEDICATIONS GIVEN, EDUCATED ON CLD, EDUCATED ON ENDOSCOPY AND COLONOSCOPY FOR TOMORROW, PT STATES "MY PAIN IS ALWAYS A 10/10". NO OTHER NEEDS
--- NOTE | 2021-03-30 15:36 | NUR ---
RISKS OF TRANSFUSION REACTION WENT OVER WITH PT, PT ACKNOWLEDGED RISKS, NO QUESTIONS OR CONCERNS, BLOOD VERFIED WITH UNA ELIZALDE, BLOOD STARTED INFUSING AT 1536, RECORDED VITAL SIGNS, NO OTHER NEEDS AT THIS TIME
--- NOTE | 2021-03-30 18:45 | NUR ---
PT PLEASANT, AOX4, STARTING BOWEL PREP, EDUCATED ON NEED TO DRINK UNTIL STOOL CLEAR, BLOOD FINISHED INFUSING, H&H TIMED FOR 1999, REPORTS CHRONIC PAIN, VISITOR IN ROOM WITH PT, NO OTHER NEEDS
--- NOTE | 2021-03-30 19:03 | NUR ---
CONSULT CALLED TO DR. FLORIAN
[2021-03-30 20:30] LABS: HEMATOCRIT 24.9 % (37.0-47.0); HEMOGLOBIN 8.3 g/dl (12.5-16.0)
--- NOTE | 2021-03-30 23:48 | NUR ---
PT IS SITTING UP IN BED, DENIES PAIN OR ANY COMPLAINTS. PT IS PLEASANT AND LAUGHS AT RANDOM TIMES BUT CONVERSANT. PT IS DRINKING BOWEL PREP WITH NO ISSUES. STILL REPORTING STOOL THAT IS NOT CLEAR. BUT IS ABLE TO HAVE BOWEL MOVEMENTS. PT WILL BE NPO AT MIDNIGHT, EXCEPT TO FINISH THE BOWEL PREP. PT THOUGHT SHE HAD TAKEN OFF LIDOCAINE PATCH EARLIER, THIS RN FOUND IT ON BACK AND REMOVED PATCH. TOLD PT THAT SHE WOULD GET A NEW ONE IN THE MORNING. PT VERBALIZED UNDERSTANDING. CALL LIGHT IN REACH. NO OTHER NEEDS AT THIS TIME.
[2021-03-31] VITALS (8 sets, daily range): BP systolic 109–128; BP diastolic 55–72; PULSE 74–98; TEMP 98.2–98.4
--- NOTE | 2021-03-31 06:14 | NUR ---
PT HAD AN UNEVENTFUL NIGHT. PT CONTINUING TO DRINK BOWEL PREP. LAST BOWEL MOVEMENT WAS A CLEAR YELLOW LIQUID STOOL. PT FELL ASLEEP INTERMEDIATE DRINKING BOWEL PREP. PT REMAINED PLEASANT AND SLEPT FOR A FEW HOURS OVERNIGHT. PT TOOK MEDICATIONS PRESCRIBED AND HAS NO NEEDS AT THIS TIME. CALL LIGHT IN REACH.
--- NOTE | 2021-03-31 07:40 | NUR ---
PT PLEASANT, TOOK PILLS WITH SIP OF WATER, NPO OTHER THAN THAT, BOWEL CLEAR, RA TRIAL TRIED AND DESAT TO 86%. 1L SATTING 91%. PT BLE EDEMETOUS, NO OTHER NEEDS
[2021-03-31 07:46] LABS: ALBUMIN 2.7 gm/dL (3.5-5.0); C-REACTIVE PROTEIN 0.35 mg/dL (0.00-0.50); CREATININE, serum 1.07 mg/dL (0.57-1.11); MAGNESIUM 1.9 mg/dL (1.6-2.6); POTASSIUM 3.9 mmol/L (3.5-4.5)
[2021-03-31 08:08] LABS: BASO # 0.1 K/mm3 (0.0-0.2); BASO % 0.9 % (0.0-2.0); EOS % 0.1 % (0-4.0); GRAN % 56.5 % (42.2-75.2); LYMPH % 28.6 % (20.0-51.0); MEAN CELL VOLUME 96 fl (80.0-100.0); MEAN CORPUSCULAR HGB CONC 33 g/dl (33.0-37.0); MEAN PLATELET VOLUME 9.3 fl (7.4-10.4); MONO # 0.9 K/mm3 (0.1-0.6); PLATELET COUNT 411 K/mm3 (130-400); RED BLOOD COUNT 2.65 M/mm3 (4.10-5.30)
[2021-03-31 08:10] LABS: HEMATOCRIT 25.3 % (37.0-47.0); HEMOGLOBIN 8.3 g/dl (12.5-16.0); MEAN CORPUSCULAR HEMOGLOBIN 31 pg (27.0-31.0)
--- NOTE | 2021-03-31 15:00 | NUR ---
PT RETURNED FROM PROCEDURE, REQUESTED PAIN MEDS AND FLUIDS, DR. MATTHEWS GAVE VERBAL ORDER FOR DIET. FLUIDS AND PAIN MEDSD BROUGHT INTO PT ROOM
--- NOTE | 2021-03-31 15:34 | NUR ---
JOHN staffed with the hospitalist. The patient is to have an EGD and colonoscopy today. If it comes back normal, the patient may be ready to discharge tomorrow. JOHN contacted [facility]. [facility] reports that they are full now and do not know when they may have a bed coming available. JOHN met with the patient to update. JOHN discussed the option of staying with her mother or a friend again. The patient reports that she will not be staying with her mother and that she had already planned on contacting a friend to see about staying with them. SW encouraged the patient to contact her friend soon. The patient reports that she is also already connected with [facility]. The patient informed JOHN that she will not be able to afford her meds. JOHN provided the patient with [facility]'s Resource Guide. The patient will need a med voucher to [facility] upon discharge. She will also tentatively need oxygen and this will need to be set up through [facility].
--- NOTE | 2021-03-31 18:43 | NUR ---
PT IN POOR SPIRITS, HAPPIER AFTER VISITOR ARRIVED, PT EGD/COLON UNEVENTFUL, PAIN MEDS GIVEN EARLIER, DIET REORDERED FOR PT, NO OTHER NEEDS
--- NOTE | 2021-03-31 20:00 | NUR ---
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 Assessment complete. A&Ox4. Denies nausea/shortness of breath. VS stable. Rating pain 10/10 on pain scale to bilat lower ext. Pain meds are not due until 0300-will contact hospitalist for new orders. O2@1L/HFNC. Noted to have +3 BLE edema up to hips with excoriation to thighs. Plan of care discussed for this shift to include meds/O2/calling for questions/concerns. Verbalizes understanding. Call light in reach. Will monitor.
--- NOTE | 2021-03-31 23:00 | NUR ---
New orders received for extra dose of oxycodone. Given at this time. Will monitor.
[2021-04-01 00:02] VITALS: BP 112/63; PULSE 96; TEMP 98.6
[2021-04-01 04:22] VITALS: BP 128/65; PULSE 99; TEMP 99.1
--- NOTE | 2021-04-01 06:09 | NUR ---
Had an uneventful night. Received one extra dose of oxycodone for bilat lower extremity pain. Tolerating PO. Denied nausea/shortness of breath> VS remained stable. O2@1L/HFNC. Denies current needs. Call light in reach. Will monitor.
[2021-04-01 07:36] VITALS: BP 114/59; PULSE 98; TEMP 99
--- NOTE | 2021-04-01 08:00 | NUR ---
Patient sitting up in bed, TV on. Patient A&Ox4. VSS 2L NC O2, no reported SOB. IV CDI. Reporting pain BLE, pain medication given as requested. Patient independent in the room. No further needs expressed. Call light within reach
[2021-04-01] MEDS ORDERED: LASIX 20MG TABL20 MG PO (10:07)
[2021-04-01] MEDS ORDERED: PROAIR HFA0.09 MG/AC IH (10:07)
[2021-04-01] MEDS ORDERED: THIAMINE 1100 MG/TAB PO (10:08)
[2021-04-01] MEDS ORDERED: FOLIC ACID 11 MG/TA1 PO (10:08)
[2021-04-01] MEDS ORDERED: DUO-KAPS1 CAP PO (10:08)
--- NOTE | 2021-04-01 11:04 | NUR ---
JOHN update: Met with patient about DC. Patient reports that she was not aware of DC. Patient was offered medication voucher and patient accepted. Informed patient of [employer] for transfer. Patient shares that she called her friend who is not answering her call. JOHN will continue to work with patient on DC>
--- NOTE | 2021-04-01 11:20 | NUR ---
JOHN sent fax and spokes with [employer] for oxygen delivery for patient and he ack. services. Will bring o2 to hospital. Nf.
[2021-04-01 12:50] VITALS: BP 136/62; PULSE 100; TEMP 99.2
--- NOTE | 2021-04-01 15:09 | NUR ---
Patient taken by wheelchair to ED entrance with friend at the bedside. Discharge paperwork , personal belonings and RX drugs from [facility] with the patient. Discharge paperwork reviewed with the patient. Patient verbalized an understanding to follow doctors orders.No further needs expressed.
--- NOTE | 2021-04-01 16:02 | NUR ---
JOHN update; Dom was able to obtain medcations from [facility] through Delivery with carrier. Dom provide SW with [employer] coupon for transport day pass. Unfortunately the route that the patient would need to obtain medications was not available until after the time the pharmacy was closed. Dom supported patient in medication issues. JOHN gave patient resources for care and Called the [facility] in , left message, no answer. JOHN called [employer] to obtain support, they charge 45$ per filler picker plus 2$ per mile. NF>
--- NOTE | 2021-04-03 14:53 | NUR ---
gas pit worker followed up with the patient following follow up discharge phone call.Patient is upset that she was not sent home with any pain medications. Patient reported to TONIO Kiran that she is living in a trailer that is hooked up to a generator. Reports that her toilet is to low and is needing a toilet riser. Patient verbalized to TONIO Tompkins that she is needing help getting set up with disablilty. gas pit worker attempted to reach out to the patient but the phone call went straight to voicemail. Message left for the patient that if she hasn't yet she needed to make an appointment with the [facility] and to inquire with them to see if they can help obtain a toilet riser. Informed the patient to reach out to the [facility] for help with disability. Encouraged the patient to return my message for more detailed instructions.
== END 2021-04-01 15:09 | disposition home or self-care (01) | DRG 871 ==
LOC: COL.ER 08:34 → ICU 11:00 → MEDICAL 11:00 → ICU 11:01 → MEDICAL 03-25 11:34
PROVIDERS: Emergency Medicine; Internal Medicine; Internal Medicine Pulmonary Disease; Internal Medicine Sleep Medicine; Student in an Organized Health Care Education/Training Program; ADMIT Internal Medicine
PROC: 02HV33Z Insertion of Infusion Device into Superior Vena Cava, Percutaneous Approach (ICD-10-PCS; 2021-03-17)
PROC: 5A09557 Assistance with Respiratory Ventilation, Greater than 96 Consecutive Hours, Continuous Positive Airway Pressure (ICD-10-PCS; principal; 2021-03-19)
PROC: XW033E5 Introduction of Remdesivir Anti-infective into Peripheral Vein, Percutaneous Approach, New Technology Group 5 (ICD-10-PCS; 2021-03-24)
DX: A41.9 Sepsis, unspecified organism (principal); R65.21 Severe sepsis with septic shock; J96.01 Acute respiratory failure with hypoxia; U07.1 COVID-19; N39.0 Urinary tract infection, site not specified; N17.9 Acute kidney failure, unspecified; E87.0 Hyperosmolality and hypernatremia; N13.30 Unspecified hydronephrosis; E46 Unspecified protein-calorie malnutrition; Z98.51 Tubal ligation status; E87.6 Hypokalemia; E83.42 Hypomagnesemia; D69.6 Thrombocytopenia, unspecified; F10.129 Alcohol abuse with intoxication, unspecified; E87.70 Fluid overload, unspecified; E87.8 Other disorders of electrolyte and fluid balance, not elsewhere classified; D50.9 Iron deficiency anemia, unspecified; Y90.6 Blood alcohol level of 120-199 mg/100 ml; Z59.00 Homelessness unspecified; Z68.24 Body mass index [BMI] 24.0-24.9, adult
CPT/HCPCS: 99223-AI; 99232-AI; 99233-AI; 99239; C1751; C9113; J0696; J1100; J1650; J1652; J1720; J1756; J1940; J2543; J2704; J3370; J3411; J3475; J3480; J7030; J7040; J7050; J7060; J7120; P9016; P9047

== ENCOUNTER 2023-06-08 14:22 | Emergency (ER) | payer SELFPAY ==
[~2023-06-08] VITALS: Ht 167.6 cm; Wt 63.6 kg
[~2023-06-08 14:22] MED LIST changes: +BACTRIM DS 8001 TAB PO; +DILAUDID 2MG TAB2 MG PO; +FLEXERIL 1010 MG/TAB PO; +LASIX 20MG TABL20 MG PO; +MOBIC 7.5MG7.5 MG PO; +MULTI VITAMINS1 TAB PO; +PROAIR HFA0.09 MG/AC IH
[2023-06-08 14:27] VITALS: TEMP 98
[2023-06-08 15:11] VITALS: BP 121/80; PULSE 89
== END 2023-06-08 15:11 | disposition home or self-care (01) ==
LOC: COL.ER 14:22
DX: S62.656A Nondisplaced fracture of middle phalanx of right little finger, initial encounter for closed fracture (principal); F17.210 Nicotine dependence, cigarettes, uncomplicated; W23.0XXA Caught, crushed, jammed, or pinched between moving objects, initial encounter

== ENCOUNTER → 2023-07-09 | Outpatient (CLI) | payer OTHER | LOC: COL.RAD 08:56 | DX: Z02.71 Encounter for disability determination (principal); M25.512 Pain in left shoulder; M25.552 Pain in left hip ==